=== PATIENT | female | born 1990 | race Caucasian/White ===

== ENCOUNTER 2016-11-29 04:28 | Emergency (ER) | payer OTHER ==
[2016-11-29 04:39] VITALS: BP 141/53; PULSE 97; RESP 16; TEMP 97.5
--- NOTE | 2016-11-29 04:51 | ED ---
General Adult HPI - General Chief complaint: Fall Stated complaint: fell, head injury Time Seen by Provider: 11/29/16 04:35 Source: patient, family, RN notes reviewed Mode of arrival: ambulatory Limitations: no limitations - History of Present Illness Initial comments: This is a 26-year-old female comes in today complaining of having fallen and hit her head. Patient states she has mild headache at this time. Patient states she's been drinking and tripped over a cement. Patient did not lose consciousness she was not dazed. Patient denies any numbness weakness. Patient does complain of a little bit of neck tenderness on the lateral aspects of the spinous process. Patient denies any other injury. Patient denies any nausea or vomiting. Patient states she was not dizzy or lightheaded prior to the event or after the event. - Related Data Home Medications Medication Instructions Recorded Confirmed FLUoxetine HCL [PROzac] 20 mg PO DAILY 09/06/14 06/16/15 Levothyroxine Sodium [Synthroid] 1 tab OP DAILY 12/08/14 06/16/15 Opy-Loud-Jvays Acid 1 tab PO DAILY 12/11/14 06/16/15 [-U Capsule] Previous Rx's Medication Instructions Recorded Ibuprofen [Motrin] 800 mg PO Q8HR PRN #30 tab 06/16/15 Ondansetron Odt [Zofran ODT] 4 mg PO Q8HR PRN #10 tab 06/16/15 Allergies Allergy/AdvReac Type Severity Reaction Status Date / Time Penicillins Allergy Swelling Verified 01/29/15 17:04 Review of Systems ROS Statement: Those systems with pertinent positive or pertinent negative responses have been documented in the HPI. ROS Other: All systems not noted in ROS Statement are negative. Past Medical History Past Medical History: Thyroid Disorder History of Any Multi-Drug Resistant Organisms: None Reported Past Surgical History: Section Past Psychological History: Anxiety, Depression Smoking Status: Former smoker Past Alcohol Use History: None Reported Past Drug Use History: None Reported General Exam - General Exam Comments Initial Comments: GENERAL Patient is well-developed and well-nourished. Patient is in mild distress. There is a hematoma on the right aspect of the forehead with a superficial abrasion over the hematoma EYES Patient's pupils are equal and round. Extraocular motion is intact. SKIN Unremarkable NEURO The patient is alert and oriented 3 PYSCH Patient has normal interpersonal interactions. MUSCULOSKELETAL Patient has full range of motion of all 4 extremities Limitations: no limitations Course Vital Signs 11/29/16 04:36 Temperature 97.5 F L Pulse Rate 97 Respiratory 16 Rate Blood Pressure 141/53 O2 Sat by Pulse 97 Oximetry Medical Decision Making - Medical Decision Making CT of the brain and C-spine are negative for any acute injury except for hematoma on the forehead Disposition Clinical Impression: Traumatic hematoma of forehead, Head injury Disposition: HOME SELF-CARE Instructions: Head Injury (ED), Hematoma (ED) Referrals: Gorge Courtney DO [Primary Care Provider] - 1-2 days Time of Disposition: 05:26
--- NOTE | 2016-11-29 05:21 | CT ---
EXAMINATION TYPE: CT brain [place] wo con DATE OF EXAM: 11/29/2016 5:06 AM COMPARISON: CT brain 03/21/2010 HISTORY: Pt. fell and hit her head; abrasion/contusion to right frontal bone. CT DLP: 1370.80 mGycm Automated exposure control for dose reduction was used. TECHNIQUE: CT scan of the head and cervical spine are performed without contrast. FINDINGS: CT BRAIN: There is evidence of 1.3 x 5.0 cm cephalohematoma in the right frontal area in the axial image 11. No definite depressed skull fracture is noted. No significant brain contusion changes are noted in the bilateral frontal lobes and also bilateral occipital and the posterior parietal lobes of brain. No si gnificant subdural or epidural hematoma is noted at this time. There is no acute intracranial hemorrhage, mass effect, or midline shift identified. The ventricles and sulci are within normal limits in size. The globes are intact and the visualized sinuses are cl ear. CT CERVICAL SPINE: Cervical spine is visualized in its entirety from C1 through upper thoracic levels and demonstrates s atisfactory alignment without evidence of acute fracture or dislocation. Prevertebral soft tissue ap pears within normal limits. The C1-C2 articulation is unremarkable. Upper lung okeefe appear grossly unremarkable bilaterally. IMPRESSION: 1. There is no acute fracture or dislocation evident in the cervical spine. 2. No acute intracranial hemorrhage, mass effect, or midline shift is seen. 3. There is evidence of 1.3 x 5.0 cm cephalohematoma in the right frontal area without depressed skul l fracture.
== END 2016-11-29 05:43 | disposition home or self-care (01) ==
LOC: EC 04:28
DX: S00.83XA Contusion of other part of head, initial encounter (principal); E07.9 Disorder of thyroid, unspecified; F32.9 Major depressive disorder, single episode, unspecified; Z79.899 Other long term (current) drug therapy; Z88.0 Allergy status to penicillin; Z87.891 Personal history of nicotine dependence; W19.XXXA Unspecified fall, initial encounter
CPT/HCPCS: 70450; 72125; 99284

== ENCOUNTER → 2017-01-13 | Outpatient (CLI) | payer OTHER ==
[2017-01-13 17:00] LABS: CH 29.7; CHCM 33.8; HCT 42.2 % (34.0-46.0); HDW 2.49; HGB 14.9 gm/dL (11.4-16.0); MCH 31.1 pg (25.0-35.0); MCHC 35.2 g/dL (31.0-37.0); MCV 88.3 fL (80.0-100.0); Mean Platelet Volume 7.3; RBC 4.78 m/uL (3.80-5.40); RDW 12.3 % (11.5-15.5); WBC 9.6 k/uL (3.8-10.6)
[2017-01-13 17:11] LABS: ALT 35 U/L (9-52); AST 28 U/L (14-36); Alkaline Phosphatase 74 U/L (38-126); Anion Gap 12 mmol/L; Blood Urea Nitrogen 11 mg/dL (7-17); Calcium 9.7 mg/dL (8.4-10.2); Carbon Dioxide 24 mmol/L (22-30); Chloride 105 mmol/L (98-107); Cholesterol 192 mg/dL (<200); Glucose 93 mg/dL (74-99); HDL Cholesterol 62 mg/dL (40-60); Non-African American GFR(MDRD) >60 (>60 ml/min/1.73 sqM); Potassium 4.2 mmol/L (3.5-5.1); Sodium 141 mmol/L (137-145); Total Bilirubin 0.4 mg/dL (0.2-1.3); Triglycerides 134 mg/dL (<150)
== END | disposition home or self-care (01) ==
LOC: LABWHC1 16:00
PROVIDERS: ATTEND Psychiatry & Neurology Psychiatry
DX: E03.9 Hypothyroidism, unspecified (principal); B36.0 Pityriasis versicolor
CPT/HCPCS: 36415; 80053; 80061; 84439; 84443; 85027

== ENCOUNTER → 2017-06-23 | Outpatient (CLI) | payer OTHER ==
[2017-06-23 10:29] LABS: CH 29.9; CHCM 33.7; HCT 42.7 % (34.0-46.0); HDW 2.38; HGB 14.3 gm/dL (11.4-16.0); MCH 29.9 pg (25.0-35.0); MCHC 33.5 g/dL (31.0-37.0); MCV 89.1 fL (80.0-100.0); RBC 4.79 m/uL (3.80-5.40); RDW 13.4 % (11.5-15.5); WBC 6.7 k/uL (3.8-10.6)
[2017-06-23 10:47] LABS: ALT 36 U/L (9-52); AST 23 U/L (14-36); Alkaline Phosphatase 54 U/L (38-126); Anion Gap 9 mmol/L; Blood Urea Nitrogen 13 mg/dL (7-17); Calcium 9.3 mg/dL (8.4-10.2); Carbon Dioxide 27 mmol/L (22-30); Chloride 104 mmol/L (98-107); Cholesterol 190 mg/dL (<200); Glucose 90 mg/dL (74-99); HDL Cholesterol 59 mg/dL (40-60); Non-African American GFR(MDRD) >60 (>60 ml/min/1.73 sqM); Potassium 4.3 mmol/L (3.5-5.1); Sodium 140 mmol/L (137-145); Total Bilirubin 0.8 mg/dL (0.2-1.3); Total Protein 7.1 g/dL (6.3-8.2); Triglycerides 102 mg/dL (<150)
[2017-06-23 19:08] LABS: Hemoglobin A1C 5.1 % (4.2-6.1)
== END | disposition home or self-care (01) ==
LOC: LABWHC1 09:38
PROVIDERS: ATTEND Psychiatry & Neurology Psychiatry
DX: F31.60 Bipolar disorder, current episode mixed, unspecified (principal); Z79.899 Other long term (current) drug therapy
CPT/HCPCS: 36415; 80053; 80061; 83036; 84439; 84443; 85027

== ENCOUNTER 2017-09-01 10:28 | Emergency (ER) | payer OTHER ==
--- NOTE | 2017-09-01 11:36 | ED ---
Psych HPI - General Chief Complaint: Psychiatric Symptoms Stated Complaint: mental health Time Seen by Provider: 09/01/17 10:46 Source: patient Mode of arrival: ambulatory - History of Present Illness Initial Comments: 's is a 27-year-old female to history of depression and anxiety who typically takes Prozac and Abilify who presents emergency department for depression and suicidal ideation. She states that she's been out of her medications for the last month and a half due to insurance reasons. She states that she called her psychiatrist and has an appointment next week however has been having worsening depression and thoughts of wanting to hurt herself. She does not have a specific plan. She denies any homicidal ideation. No attempt at injury. She denies any other acute complaints currently. - Related Data Home Medications Medication Instructions Recorded Confirmed ALPRAZolam [Xanax] 0.25 mg PO DAILY PRN 09/01/17 09/01/17 Allergies Allergy/AdvReac Type Severity Reaction Status Date / Time Penicillins Allergy Swelling Verified 09/01/17 11:01 Review of Systems ROS Statement: Those systems with pertinent positive or pertinent negative responses have been documented in the HPI. ROS Other: All systems not noted in ROS Statement are negative. Past Medical History Past Medical History: Thyroid Disorder History of Any Multi-Drug Resistant Organisms: None Reported Past Surgical History: Section Past Psychological History: Anxiety, Depression Smoking Status: Former smoker Past Alcohol Use History: Occasional General Exam - General Exam Comments Initial Comments: Constitutional: Awake alert Appears comfortable Head: Normocephalic atraumatic Eyes: no conjunctival injection No scleral icterus EOMI Neck: No JVD Supple Heart: Regular rate rhythm normal S1-S2 no murmurs Lungs: Clear to auscultation bilaterally No wheezing No rales Abdomen: Soft nondistended nontender Extremities: Non edematous DP pulses intact Radial pulses intact Neuro: A&Ox3 No focal neurologic deficits Psych: Breast and suicidal without specific plan Limitations: no limitations Course Vital Signs 09/01/17 10:42 Temperature 99.5 F Pulse Rate 85 Respiratory 18 Rate Blood Pressure 134/63 O2 Sat by Pulse 93 L Oximetry Medical Decision Making - Medical Decision Making Is a 27-year-old female who presents emergency department for suicidal ideation. She was evaluated by EPS and to be any mental health who have established an outpatient follow-up for her. The patient is going to follow-up with her psychiatrist next week. They're going to have someone check on her daily. The patient is comfortable with this plan. The do not recommend refilling her prescriptions at this time. - Lab Data Lab Results 09/01/17 09/01/17 Range/Units 11:00 11:00 Urine HCG, Qual Not Detected (Not Detectd) Urine Opiates Screen Not Detected (NotDetected) Ur Oxycodone Screen Not Detected (NotDetected) Urine Methadone Screen Not Detected (NotDetected) Ur Propoxyphene Screen Not Detected (NotDetected) Ur Barbiturates Screen Not Detected (NotDetected) U Tricyclic Antidepress Not Detected (NotDetected) Ur Phencyclidine Scrn Not Detected (NotDetected) Ur Amphetamines Screen Not Detected (NotDetected) U Methamphetamines Scrn Not Detected (NotDetected) U Benzodiazepines Scrn Not Detected (NotDetected) Urine Cocaine Screen Not Detected (NotDetected) U Marijuana (THC) Screen Not Detected (NotDetected) Disposition Clinical Impression: Depression Disposition: HOME SELF-CARE Condition: Fair Instructions: Depression (ED) Referrals: Gorge Courtney DO [Primary Care Provider] - 1-2 days
[2017-09-01 14:07] VITALS: BP 121/67; PULSE 92; RESP 97; TEMP 98.5
== END 2017-09-01 14:24 | disposition home or self-care (01) ==
LOC: EC 10:28
DX: F32.9 Major depressive disorder, single episode, unspecified (principal); R45.851 Suicidal ideations; Z87.891 Personal history of nicotine dependence; Z88.0 Allergy status to penicillin
CPT/HCPCS: 80306; 81025; 82075; 99284

== ENCOUNTER 2017-11-21 15:27 | Emergency (ER) | payer OTHER ==
[2017-11-21 15:39] VITALS: TEMP 98
[2017-11-21] MEDS ORDERED: ONDANSETRON 4 MG/2 ML VIAL IVP STA (16:16)
[2017-11-21] MEDS ORDERED: SODIUM CHLORIDE 0.9% 1,000 ML IV STA (16:16)
[2017-11-21] MEDS ORDERED: FAMOTIDINE 20 MG/2 ML VIAL IV STA (16:16)
--- NOTE | 2017-11-21 16:22 | ED ---
General Adult HPI - General Chief complaint: Abdominal Pain Stated complaint: Abd pain Time Seen by Provider: 11/21/17 16:10 Source: patient, RN notes reviewed Mode of arrival: ambulatory Limitations: no limitations - History of Present Illness Initial comments: 27-year-old female presents to the emergency department with a chief complaint of nausea and vomiting. Patient states started up to 3 hours ago. She states that originally looked like vomit with just trace of blood and that is what is continuing to look like but she was concerned due to the blood. She states she' s had some epigastric abdominal pain. There's been no diarrhea no fever or chills. She states that there is been no cough cold. She states that she deja little bit of streaking in it appeared to be like blood so she thought that she should be seen. Patient states she has not vomited over the last half hour. Patient denies any new or different foods. Patient states she is not currently having any other symptoms. Patient denies any recent fever, chills, shortness of breath, chest pain, back pain, numbness or tingling, dysuria or hematuria, constipation or diarrhea, headaches or visual changes, or any other current symptoms. - Related Data Home Medications Medication Instructions Recorded Confirmed ARIPiprazole [Abilify] 10 mg PO DAILY 11/21/17 11/21/17 FLUoxetine HCL [PROzac] 20 mg PO DAILY 11/21/17 11/21/17 Previous Rx's Medication Instructions Recorded Famotidine [Pepcid] 20 mg PO BID #10 tablet 11/21/17 Ondansetron Odt [Zofran ODT] 4 mg PO Q8HR PRN #20 tab 11/21/17 Allergies Allergy/AdvReac Type Severity Reaction Status Date / Time Penicillins Allergy Swelling Verified 11/21/17 16:17 Review of Systems ROS Statement: Those systems with pertinent positive or pertinent negative responses have been documented in the HPI. ROS Other: All systems not noted in ROS Statement are negative. Past Medical History Past Medical History: Thyroid Disorder History of Any Multi-Drug Resistant Organisms: None Reported Past Surgical History: Section Past Psychological History: Anxiety, Depression Smoking Status: Former smoker Past Alcohol Use History: Occasional Past Drug Use History: None Reported General Exam - General Exam Comments Initial Comments: General: The patient is awake and alert, in no distress, and does not appear acutely ill. Eye: Pupils are equal, round and reactive to light, extra-ocular movements are intact; there is normal conjunctiva bilaterally. No signs of icterus. Ears, nose, mouth and throat: There are moist mucous membranes. Neck: The neck is supple, there is no tenderness. Cardiovascular: There is a regular rate and rhythm. No murmur, rub or gallop is appreciated. Respiratory: Lungs are clear to auscultation, respirations are non-labored, breath sounds are equal. No wheezes, stridor, rales, or rhonchi. Gastrointestinal: Soft, non-distended, non-tender abdomen without masses or organomegaly noted. There is no rebound or guarding present. No CVA tenderness. Bowel sounds are unremarkable. Back: There is no tenderness to palpation in the midline. There is no obvious deformity. No rashes noted. Musculoskeletal: Normal ROM, no tenderness, There is no pedal edema. There is no calf tenderness or swelling. Sensation intact. Pulses equal bilaterally 2+. Neurological: CN II-XII intact, There are no obvious motor or sensory deficits. Coordination appears grossly intact. Speech is normal. Skin: Skin is warm and dry and no rashes or lesions are noted. Psychiatric: Cooperative, appropriate mood & affect, normal judgment. Limitations: no limitations Course Vital Signs 11/21/17 11/21/17 15:36 16:51 Temperature 98 F Pulse Rate 97 99 Respiratory 18 18 Rate Blood Pressure 122/73 130/63 O2 Sat by Pulse 100 99 Oximetry Medical Decision Making - Medical Decision Making 27-year-old female presents for nausea vomiting and epigastric abdominal pain. This time she is feeling better on exam. At this time we did discuss the patient's lab results and imaging results. We did discuss follow-up with GI. We did discuss return parameters discussed patient's questions. We did discuss all discussed follow-up. - Lab Data Result diagrams: 11/21/17 16:46 11/21/17 16:46 Lab Results 11/21/17 11/21/17 11/21/17 Range/Units 16:46 16:46 16:46 WBC 10.2 (3.8-10.6) k/uL RBC 4.74 (3.80-5.40) m/uL Hgb 13.6 (11.4-16.0) gm/dL Hct 41.4 (34.0-46.0) % MCV 87.4 (80.0-100.0) fL MCH 28.8 (25.0-35.0) pg MCHC 32.9 (31.0-37.0) g/dL RDW 14.1 (11.5-15.5) % Plt Count 236 (150-450) k/uL Neutrophils % 82 % Lymphocytes % 12 % Monocytes % 4 % Eosinophils % 1 % Basophils % 1 % Neutrophils # 8.4 H (1.3-7.7) k/uL Lymphocytes # 1.2 (1.0-4.8) k/uL Monocytes # 0.4 (0-1.0) k/uL Eosinophils # 0.1 (0-0.7) k/uL Basophils # 0.1 (0-0.2) k/uL PT (9.0-12.0) sec INR (<1.2) APTT (22.0-30.0) sec Sodium 143 (137-145) mmol/L Potassium 4.3 (3.5-5.1) mmol/L Chloride 105 (98-107) mmol/L Carbon Dioxide 26 (22-30) mmol/L Anion Gap 12 mmol/L BUN 12 (7-17) mg/dL Creatinine 0.60 (0.52-1.04) mg/dL Est GFR (MDRD) Af Amer >60 (>60 ml/min/1.73 sqM) Est GFR (MDRD) Non-Af >60 (>60 ml/min/1.73 sqM) Glucose 93 (74-99) mg/dL Plasma Lactic Acid Ambrosio (0.7-2.0) mmol/L Calcium 9.6 (8.4-10.2) mg/dL Total Bilirubin 0.5 (0.2-1.3) mg/dL AST 27 (14-36) U/L ALT 38 (9-52) U/L Alkaline Phosphatase 54 (38-126) U/L Total Protein 7.8 (6.3-8.2) g/dL Albumin 4.9 (3.5-5.0) g/dL Amylase 59 (30-110) U/L Lipase 49 (23-300) U/L Urine Color Urine Appearance (Clear) Urine pH (5.0-8.0) Ur Specific English (1.001-1.035) Urine Protein (Negative) Urine Glucose (UA) (Negative) Urine Ketones (Negative) Urine Blood (Negative) Urine Nitrite (Negative) Urine Bilirubin (Negative) Urine Urobilinogen (<2.0) mg/dL Ur Leukocyte Esterase (Negative) Urine RBC (0-5) /hpf Urine WBC (0-5) /hpf Ur Squamous Epith Cells (0-4) /hpf Amorphous Sediment (None) /hpf Urine Mucus (None) /hpf Urine HCG, Qual (Not Detectd) Blood Type O Positive Blood Type Recheck No Antibody Screen NEGATIVE Spec Expiration Date 11/24/2017 - 234511/21/17 11/21/17 11/21/17 Range/Units 16:46 16:46 16:46 WBC (3.8-10.6) k/uL RBC (3.80-5.40) m/uL Hgb (11.4-16.0) gm/dL Hct (34.0-46.0) % MCV (80.0-100.0) fL MCH (25.0-35.0) pg MCHC (31.0-37.0) g/dL RDW (11.5-15.5) % Plt Count (150-450) k/uL Neutrophils % % Lymphocytes % % Monocytes % % Eosinophils % % Basophils % % Neutrophils # (1.3-7.7) k/uL Lymphocytes # (1.0-4.8) k/uL Monocytes # (0-1.0) k/uL Eosinophils # (0-0.7) k/uL Basophils # (0-0.2) k/uL PT 10.2 (9.0-12.0) sec INR 1.0 (<1.2) APTT 24.9 (22.0-30.0) sec Sodium (137-145) mmol/L Potassium (3.5-5.1) mmol/L Chloride (98-107) mmol/L Carbon Dioxide (22-30) mmol/L Anion Gap mmol/L BUN (7-17) mg/dL Creatinine (0.52-1.04) mg/dL Est GFR (MDRD) Af Amer (>60 ml/min/1.73 sqM) Est GFR (MDRD) Non-Af (>60 ml/min/1.73 sqM) Glucose (74-99) mg/dL Plasma Lactic Acid Ambrosio 1.7 (0.7-2.0) mmol/L Calcium (8.4-10.2) mg/dL Total Bilirubin (0.2-1.3) mg/dL AST (14-36) U/L ALT (9-52) U/L Alkaline Phosphatase (38-126) U/L Total Protein (6.3-8.2) g/dL Albumin (3.5-5.0) g/dL Amylase (30-110) U/L Lipase (23-300) U/L Urine Color Yellow Urine Appearance Cloudy H (Clear) Urine pH 8.5 H (5.0-8.0) Ur Specific English 1.024 (1.001-1.035) Urine Protein 2+ H (Negative) Urine Glucose (UA) Negative (Negative) Urine Ketones Negative (Negative) Urine Blood Negative (Negative) Urine Nitrite Negative (Negative) Urine Bilirubin Negative (Negative) Urine Urobilinogen <2.0 (<2.0) mg/dL Ur Leukocyte Esterase Moderate H (Negative) Urine RBC 8 H (0-5) /hpf Urine WBC 7 H (0-5) /hpf Ur Squamous Epith Cells 17 H (0-4) /hpf Amorphous Sediment Rare H (None) /hpf Urine Mucus Few H (None) /hpf Urine HCG, Qual (Not Detectd) Blood Type Blood Type Recheck Antibody Screen Spec Expiration Date 11/21/17 Range/Units 16:46 WBC (3.8-10.6) k/uL RBC (3.80-5.40) m/uL Hgb (11.4-16.0) gm/dL Hct (34.0-46.0) % MCV (80.0-100.0) fL MCH (25.0-35.0) pg MCHC (31.0-37.0) g/dL RDW (11.5-15.5) % Plt Count (150-450) k/uL Neutrophils % % Lymphocytes % % Monocytes % % Eosinophils % % Basophils % % Neutrophils # (1.3-7.7) k/uL Lymphocytes # (1.0-4.8) k/uL Monocytes # (0-1.0) k/uL Eosinophils # (0-0.7) k/uL Basophils # (0-0.2) k/uL PT (9.0-12.0) sec INR (<1.2) APTT (22.0-30.0) sec Sodium (137-145) mmol/L Potassium (3.5-5.1) mmol/L Chloride (98-107) mmol/L Carbon Dioxide (22-30) mmol/L Anion Gap mmol/L BUN (7-17) mg/dL Creatinine (0.52-1.04) mg/dL Est GFR (MDRD) Af Amer (>60 ml/min/1.73 sqM) Est GFR (MDRD) Non-Af (>60 ml/min/1.73 sqM) Glucose (74-99) mg/dL Plasma Lactic Acid Ambrosio (0.7-2.0) mmol/L Calcium (8.4-10.2) mg/dL Total Bilirubin (0.2-1.3) mg/dL AST (14-36) U/L ALT (9-52) U/L Alkaline Phosphatase (38-126) U/L Total Protein (6.3-8.2) g/dL Albumin (3.5-5.0) g/dL Amylase (30-110) U/L Lipase (23-300) U/L Urine Color Urine Appearance (Clear) Urine pH (5.0-8.0) Ur Specific English (1.001-1.035) Urine Protein (Negative) Urine Glucose (UA) (Negative) Urine Ketones (Negative) Urine Blood (Negative) Urine Nitrite (Negative) Urine Bilirubin (Negative) Urine Urobilinogen (<2.0) mg/dL Ur Leukocyte Esterase (Negative) Urine RBC (0-5) /hpf Urine WBC (0-5) /hpf Ur Squamous Epith Cells (0-4) /hpf Amorphous Sediment (None) /hpf Urine Mucus (None) /hpf Urine HCG, Qual Not Detected (Not Detectd) Blood Type Blood Type Recheck Antibody Screen Spec Expiration Date - Radiology Data Radiology results: report reviewed, image reviewed Disposition Clinical Impression: Nausea & vomiting Disposition: HOME SELF-CARE Condition: Stable Instructions: Acute Nausea and Vomiting (ED) Additional Instructions: Please use medication as discussed. Please follow up with family doctor if symptoms have not improved over the next two days. Please return to the emergency room if your symptoms increase or worsen or for any other concerns. Prescriptions: Famotidine [Pepcid] 20 mg PO BID #10 tablet Ondansetron Odt [Zofran ODT] 4 mg PO Q8HR PRN #20 tab PRN Reason: Nausea Referrals: Gorge Courtney DO [Primary Care Provider] - 1-2 days Giovanni Keith MD [STAFF PHYSICIAN] - 1-2 days Time of Disposition: 18:35
[2017-11-21 17:04] LABS: Basophils # (A) 0.1 k/uL (0-0.2); Basophils % (A) 1 %; Eosinophils # (A) 0.1 k/uL (0-0.7); Eosinophils % (A) 1 %; HCT 41.4 % (34.0-46.0); HGB 13.6 gm/dL (11.4-16.0); Lymphocytes # (A) 1.2 k/uL (1.0-4.8); Lymphocytes % (A) 12 %; MCH 28.8 pg (25.0-35.0); MCHC 32.9 g/dL (31.0-37.0); MCV 87.4 fL (80.0-100.0); Mean Platelet Volume 7.7; Monocytes # (A) 0.4 k/uL (0-1.0); Monocytes % (A) 4 %; Neutrophils # (A) 8.4 k/uL (1.3-7.7); Neutrophils % (A) 82 %; Platelet Count 236 k/uL (150-450); RBC 4.74 m/uL (3.80-5.40); RDW 14.1 % (11.5-15.5); WBC 10.2 k/uL (3.8-10.6)
[2017-11-21 17:10] LABS: Amorphous Sediment,Urine Rare /hpf; Appearance,Urine Cloudy (Clear); Bilirubin,Urine Negative (Negative); Blood,Urine Negative (Negative); Color,Urine Yellow; Glucose,Urine (UA) Negative (Negative); Ketones,Urine Negative (Negative); Leukocyte Esterase,Urine Moderate (Negative); Mucus,Urine Few /hpf; Nitrite,Urine Negative (Negative); PH, Urine 8.5 (5.0-8.0); Protein,Urine 2+ (Negative); RBC,Urine 8 /hpf (0-5); Specific Gravity,Urine 1.024 (1.001-1.035); Squamous Epithelial Cell,Urine 17 /hpf (0-4); Urobilinogen,Urine <2.0 mg/dL (<2.0); WBC,Urine 7 /hpf (0-5)
[2017-11-21 17:18] LABS: ALT 38 U/L (9-52); AST 27 U/L (14-36); Albumin 4.9 g/dL (3.5-5.0); Alkaline Phosphatase 54 U/L (38-126); Amylase 59 U/L (30-110); Anion Gap 12 mmol/L; Blood Urea Nitrogen 12 mg/dL (7-17); Calcium 9.6 mg/dL (8.4-10.2); Carbon Dioxide 26 mmol/L (22-30); Chloride 105 mmol/L (98-107); Glucose 93 mg/dL (74-99); Lipase 49 U/L (23-300); Potassium 4.3 mmol/L (3.5-5.1); Sodium 143 mmol/L (137-145); Total Bilirubin 0.5 mg/dL (0.2-1.3); Total Protein 7.8 g/dL (6.3-8.2)
[2017-11-21 17:25] LABS: Partial Thromboplastin Time 24.9 sec (22.0-30.0); Prothrombin Time 10.2 sec (9.0-12.0)
--- NOTE | 2017-11-21 18:26 | XR ---
EXAMINATION TYPE: XR abdomen 2V DATE OF EXAM: 11/21/2017 COMPARISON: 06/16/2015 HISTORY: Vomiting TECHNIQUE: 3 views FINDINGS: There is no sign of intestinal obstruction or pneumoperitoneum. Fecal pattern is normal. Hope ng bases are clear. There are no pathologic calcifications over the kidneys. There is no sign of a ma ss. IMPRESSION: Nonacute abdomen. No change.
[2017-11-21 18:48] VITALS: BP 104/58; PULSE 75; RESP 16
== END 2017-11-21 18:45 | disposition home or self-care (01) ==
LOC: EC 15:27
DX: R11.2 Nausea with vomiting, unspecified (principal); R10.13 Epigastric pain; F32.9 Major depressive disorder, single episode, unspecified; F41.9 Anxiety disorder, unspecified; Z87.891 Personal history of nicotine dependence; Z79.899 Other long term (current) drug therapy; Z88.0 Allergy status to penicillin
CPT/HCPCS: 36415; 86900; 86901; 80053; 82150; 83605; 83690; 85025; 85610; 85730; 86850; 81001; 81025; 74020; 99284; 96374; 96375; 96361 ×2; J2405

== ENCOUNTER 2018-01-27 16:26 | Inpatient (IN) | payer MEDICAID, OTHER ==
--- NOTE | 2018-01-27 16:46 | ED ---
General Adult HPI - General Chief complaint: Psychiatric Symptoms Stated complaint: MENTAL HEALTH Time Seen by Provider: 01/27/18 16:33 Source: patient, RN notes reviewed Mode of arrival: ambulatory Limitations: no limitations - History of Present Illness Initial comments: 28-year-old female presents to the emergency department with a chief complaint of depression and history of suicidal thoughts. Patient states that she has been feeling this way for the past few days. She went to her doctor and they referred her here. She does not currently have suicidal thoughts but she did have thoughts earlier without is significant plan. She does admit to these in the past. She denies any attempted suicides. She denies any health concerns. Patient denies any recent fever, chills, shortness of breath, chest pain, back pain, abdominal pain, nausea vomiting, numbness or tingling, dysuria or hematuria, constipation or diarrhea, headaches or visual changes, or any other current symptoms. - Related Data Home Medications Medication Instructions Recorded Confirmed ARIPiprazole [Abilify] 10 mg PO DAILY 11/21/17 01/27/18 FLUoxetine HCL [PROzac] 40 mg PO HS 11/21/17 01/27/18 Allergies Allergy/AdvReac Type Severity Reaction Status Date / Time Penicillins Allergy Swelling Verified 01/27/18 17:33 Review of Systems ROS Statement: Those systems with pertinent positive or pertinent negative responses have been documented in the HPI. ROS Other: All systems not noted in ROS Statement are negative. Past Medical History Past Medical History: Thyroid Disorder History of Any Multi-Drug Resistant Organisms: None Reported Past Surgical History: Section Past Psychological History: Anxiety, Depression Smoking Status: Former smoker Past Alcohol Use History: Occasional Past Drug Use History: None Reported General Exam Limitations: no limitations General appearance: alert, in no apparent distress Neck exam: Present: normal inspection. Absent: tenderness, meningismus, lymphadenopathy Respiratory exam: Present: normal lung sounds bilaterally. Absent: respiratory distress, wheezes, rales, rhonchi, stridor Cardiovascular Exam: Present: regular rate, normal rhythm, normal heart sounds. Absent: systolic murmur, diastolic murmur, rubs, gallop, clicks Neurological exam: Present: alert, oriented X3 Psychiatric exam: Present: depressed, suicidal ideation (in the past not currently). Absent: homicidal ideation Skin exam: Present: warm, dry, intact, normal color. Absent: rash Course Vital Signs 01/27/18 16:40 Temperature 97.6 F Pulse Rate 84 Respiratory 18 Rate Blood Pressure 136/70 O2 Sat by Pulse 97 Oximetry Medical Decision Making - Medical Decision Making 28-year-old female presents to the emergency department with a chief complaint of suicidal thoughts. At this time patient does not appear to be suffering from any acute medical emergencies. At this time the patient is cleared to be evaluated by psychiatry. At this time patient will be admitted to the psychiatric unit. This discussed with the patient who is in agreement the plan. - Lab Data Lab Results 01/27/18 Range/Units 17:05 Urine Opiates Screen Not Detected (NotDetected) Ur Oxycodone Screen Not Detected (NotDetected) Urine Methadone Screen Not Detected (NotDetected) Ur Propoxyphene Screen Not Detected (NotDetected) Ur Barbiturates Screen Not Detected (NotDetected) U Tricyclic Antidepress Not Detected (NotDetected) Ur Phencyclidine Scrn Not Detected (NotDetected) Ur Amphetamines Screen Not Detected (NotDetected) U Methamphetamines Scrn Not Detected (NotDetected) U Benzodiazepines Scrn Detected H (NotDetected) Urine Cocaine Screen Not Detected (NotDetected) U Marijuana (THC) Screen Not Detected (NotDetected) Disposition Clinical Impression: Depression Disposition: TRANSFER TO PSYCH HOSP/UNIT Condition: Stable
[2018-01-27 17:19] LABS: Amphetamine Screen,Urine Not Detected (NotDetected); Barbiturate Screen,Urine Not Detected (NotDetected); Benzodiazepines Screen,Urine Detected (NotDetected); Cocaine Screen,Urine Not Detected (NotDetected); Methadone Screen, Urine Not Detected (NotDetected); Opiate Screen,Urine Not Detected (NotDetected); Oxycodone Screen, Urine Not Detected (NotDetected); Phencyclidine Screen,Urine Not Detected (NotDetected); Tricyclic Antidepressant,Urine Not Detected (NotDetected); Urn Cannabinoid Scrn Not Detected (NotDetected)
[2018-01-27] MEDS ORDERED: LORazepam 1 MG TAB PO PRN (18:04)
[2018-01-27] MEDS ORDERED: ZIPRASIDONE 20 MG VIAL IM PRN (18:04)
[2018-01-27] MEDS ORDERED: ACETAMINOPHEN TAB 325 MG TAB PO PRN (18:04)
[2018-01-27] MEDS ORDERED: MAG HYDROX/AL HYDROX/SIMETH 30 ML CUP PO PRN (18:04)
[2018-01-27] MEDS ORDERED: MAGNESIUM HYDROXIDE 2,400 MG/10 ML CUP PO PRN (18:04)
[2018-01-27] MEDS ORDERED: LORazepam 2 MG/ML INJ IM PRN (18:06)
[2018-01-27 18:23] LABS: Appearance,Urine Cloudy (Clear); Bacteria,Urine Rare /hpf; Bilirubin,Urine Negative (Negative); Blood,Urine Negative (Negative); Color,Urine Yellow; Glucose,Urine (UA) Negative (Negative); Ketones,Urine Negative (Negative); Leukocyte Esterase,Urine Small (Negative); Mucus,Urine Few /hpf; Nitrite,Urine Negative (Negative); PH, Urine 7.5 (5.0-8.0); Protein,Urine Trace (Negative); RBC,Urine 9 /hpf (0-5); Specific Gravity,Urine 1.024 (1.001-1.035); Squamous Epithelial Cell,Urine 14 /hpf (0-4); WBC,Urine 15 /hpf (0-5)
[2018-01-28] MEDS: OXcarbazepine 300 MG TAB PO SCH ×2 (09:16→20:31)
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
[2018-01-28 09:17] LABS: Basophils % (A) 1 %; Eosinophils # (A) 0.1 k/uL (0-0.7); Eosinophils % (A) 1 %; HCT 43.5 % (34.0-46.0); HGB 14.9 gm/dL (11.4-16.0); Lymphocytes # (A) 1.5 k/uL (1.0-4.8); Lymphocytes % (A) 17 %; MCH 28.5 pg (25.0-35.0); MCHC 34.2 g/dL (31.0-37.0); MCV 83.3 fL (80.0-100.0); Mean Platelet Volume 7.2; Monocytes # (A) 0.4 k/uL (0-1.0); Monocytes % (A) 4 %; Neutrophils # (A) 6.8 k/uL (1.3-7.7); Neutrophils % (A) 77 %; Platelet Count 244 k/uL (150-450); RBC 5.23 m/uL (3.80-5.40); RDW 12.1 % (11.5-15.5); WBC 8.8 k/uL (3.8-10.6)
[2018-01-28 09:46] LABS: ALT 33 U/L (9-52); AST 20 U/L (14-36); Albumin 4.6 g/dL (3.5-5.0); Alkaline Phosphatase 49 U/L (38-126); Anion Gap 14 mmol/L; Blood Urea Nitrogen 14 mg/dL (7-17); Calcium 9.9 mg/dL (8.4-10.2); Carbon Dioxide 25 mmol/L (22-30); Chloride 102 mmol/L (98-107); Cholesterol 198 mg/dL (<200); Glucose 136 mg/dL (74-99); HDL Cholesterol 55 mg/dL (40-60); LDL Cholesterol,Calculated 115 mg/dL (0-99); Sodium 141 mmol/L (137-145); Total Bilirubin 0.5 mg/dL (0.2-1.3); Total Protein 7.2 g/dL (6.3-8.2); Triglycerides 138 mg/dL (<150)
--- NOTE | 2018-01-28 17:27 | CONS ---
CONSULTATION DATE OF CONSULTATION: 01/28/2018 REASON FOR CONSULTATION: Medical management requested by Dr. Hayes. CONSULTATION: This is a 28-year-old patient of Dr. Gorge Courtney who presented to the ER. She had a petition stating that she was depressed and suicidal. She had broken up with a girlfriend rather recently. Patient has a long-standing history of depression. Patient also had some manic episodes. She is rather emotional. Anxiety is uncontrolled. Emotions have been labile. REVIEW OF SYSTEMS: CONSTITUTIONAL: None. HEENT: None. RESPIRATORY: None. CARDIOVASCULAR: None. GASTROINTESTINAL: None. GENITOURINARY: None. MUSCULOSKELETAL: None. DERMATOLOGICAL: None. HEMATOLOGICAL: None. LYMPHATICS: None. PSYCHIATRY: As above. NEUROLOGICAL: None. PAST MEDICAL HISTORY: 1. Depression. 2. Anxiety. 3. Hypothyroid. She stopped taking medications, never followed up. PAST SURGICAL HISTORY: . SOCIAL HISTORY: . Lives with her mother. 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 Drinks about 3 times a week beer or liquor. Denies any recreational drug use right now. In the past she did some marijuana, Adderall and Xanax. ALLERGIES: PENICILLIN. HOME MEDICATIONS: 1. Prozac 40 mg at bedtime. 2. Abilify 10 mg p.o. daily. PHYSICAL EXAMINATION: Temperature 98.4, pulse 102, respiration 16, blood pressure 125/76, pulse ox 97% on room air. GENERAL APPEARANCE: Well built. BMI 35.4. Sitting up. Comfortable. EYES: Pupils equal. Conjunctivae normal. HEENT: External appearance of nose and ears normal. Oral cavity normal. NECK: JVD not raised. Mass not palpable. RESPIRATORY: Effort normal. LUNGS: Fair air entry. CARDIOVASCULAR: First and second sounds normal. No edema. ABDOMEN: Soft, nontender. Liver and spleen not palpable. LYMPHATIC: No lymph node palpable in neck or axillae. PSYCHIATRY: Patient is able to answer questions. Mood and affect slightly low. NEUROLOGICAL: Pupils equal. Cranial nerves grossly intact. Power and sensation grossly intact. INVESTIGATIONS: White count 8.8, hemoglobin 14.9, potassium 4.0. BUN and creatinine are normal. UA appears to be contaminated. Urine drug screen positive for benzodiazepines. ASSESSMENT: 1. Patient was seen by Psychiatry. They think patient has unspecified bipolar and unspecified personality disorder with some histrionic features. 2. Obesity with body mass index of 35.4. 3. Contaminated urine sample. PLAN: The patient can be put on an 1800-calorie diet for right now. She should see a dietitian when she is discharged. Psychiatric medications per the attending. Care was discussed with the patient. Thank you, Dr. Hayes. MMLORENZO / PHILIPN: [id number] /
[2018-01-28 20:16] LABS: Hemoglobin A1C 5.1 % (4.0-6.0)
[2018-01-28] MEDS: QUEtiapine 100 MG TAB PO SCH (20:31)
[2018-01-29] MEDS: OXcarbazepine 300 MG TAB PO SCH ×2 (08:43→20:20)
--- NOTE | 2018-01-29 15:07 | P.PN ---
Progress Note - Text Interval history: The patient is found in her room she follows me to an interview room. She reports being overwhelmed with recent stressors the most significant being the breakup from her girlfriend. She reports they were together for approximately 10 months. The patient states that she believe she has a bipolar diagnosis. She has been started on Trileptal and Seroquel for mood stabilization and sleep. She indicates she slept well last night. She had several questions regarding her psychotropic medications which were addressed. She is looking forward to a visit from her mother this evening she finds her supportive. She is hoping to participate in a DBT program as an outpatient. Mental status exam: The patient is an overweight female appearing her stated age. She seated calmly. Hygiene grooming grossly intact she is dressed in her own clothing. She participates in the session appropriately. She is cooperative. She reports that she feels safer here in the hospital. She is reporting no thoughts of harming others. She is endorsing no auditory or visual hallucinations or any specific delusions. She demonstrates no tangential thinking loose associations or flight of ideas. Insight and judgment limited. She is oriented to person place and date. Plan: The patient's will continue on her current psychotropic medications. She is encouraged to participate in the milieu. Vital signs reviewed. We will monitor her for safety.
[2018-01-29] MEDS: QUEtiapine 100 MG TAB PO SCH (20:20)
[2018-01-30] MEDS: OXcarbazepine 300 MG TAB PO SCH ×2 (08:31→20:18)
--- NOTE | 2018-01-30 10:36 | P.PN ---
Progress Note - Text Interval history: The patient is found in the hallway she follows me to an interview room. She states that she is doing well and asks if she can be discharged today. She has been compliant with medication. She is sleeping well and does not feel tired in the morning with the Seroquel. She feels her anxiety is significantly decreased and this gives her confidence. She has a supportive meeting with her mother and 2 aunts last night. She has been attending groups. Appetite stable. Mental status exam: The patient is an alert female appearing her stated age. She is dressed in clothing hygiene grooming are adequate. She reports her mood is much better she is reporting no suicidal or homicidal ideation intent or plan. She is endorsing no auditory or visual hallucinations or any specific delusions. There is no observable evidence of psychosis. She demonstrates no tangential thinking loose associations or flight of ideas. She does not appear hypomanic or manic. She demonstrated no verbal or physical aggressiveness she demonstrates no abnormal involuntary movements. She remains oriented to person place and date. Plan: The patient will continue on her current psychotropic medications. We will continue to monitor for safety and encourage her participation in the milieu. She appears to be clinically stabilizing. Vital signs reviewed.
[2018-01-30 12:12] VITALS: BMI 35.6
[2018-01-30] MEDS: QUEtiapine 100 MG TAB PO SCH (20:18)
[2018-01-31 06:20] VITALS: BP 106/55; PULSE 72; RESP 16; TEMP 98.6
[2018-01-31] MEDS: OXcarbazepine 300 MG TAB PO SCH (08:28)
--- NOTE | 2018-01-31 10:15 | P.DS ---
Providers Date of admission: 01/27/18 17:49 Expected date of discharge: 01/31/18 Attending physician: Amirah Hayes Consults: 01/27/18 18:04 Consult Physician Routine Consulting Provider: Arun Corea Consult Reason/Comments: Follow Up H & P Do you want consulting provider notified?: Yes Primary care physician: [facility] Course: Patient had her psychiatric evaluation physical examination and psychosocial evaluation. After psychiatric evaluation her condition was discussed with her and it was agreed to start her on Seroquel 100 mg at bedtime and Trileptal 300 mg twice a day for mood stabilization. She took these medications without any adverse effect and she was able to sleep very well at night, her mood has been stable, continues to deny suicidal and homicidal ideas. She has been attending her groups, socializing with peers and interacting with staff members. She agreed to comply with outpatient treatment and it was agreed to discharge her. Condition on discharge. This is a ambulatory female with good hygiene. She is polite and cooperative. She does not show any psychomotor agitation or retardation. Her speech is spontaneous relevant and goal- directed. Her mood is euthymic to cheerful and affect is appropriate. She denies hallucinations delusional thinking suicidal and homicidal ideas. She talk to her girlfriend and they have decided to be friends again. She is well oriented with good memory concentration general fund of knowledge etc. Her insight and judgment have improved. 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 Discharge instructions: Patient was advised to take her medications as prescribed, to seek outpatient counseling including DBT, to learn better coping skills through therapy, to inform her doctor if she gets , not to drive or operate machinery if she feels sleepy. She agreed with all these recommendations. Patient Condition at Discharge: Good Plan - Discharge Summary Discharge Rx Participant: No New Discharge Prescriptions: New OXcarbazepine [Trileptal] 300 mg PO BID 30 Days #60 tab QUEtiapine [SEROquel] 100 mg PO HS 30 Days #30 tab Discontinued ARIPiprazole [Abilify] 10 mg PO DAILY FLUoxetine HCL [PROzac] 40 mg PO HS Discharge Medication List OXcarbazepine [Trileptal] 300 mg PO BID 30 Days #60 tab 01/31/18 [Rx] QUEtiapine [SEROquel] 100 mg PO HS 30 Days #30 tab 01/31/18 [Rx] Follow up Appointment(s)/Referral(s): Gorge Courtney DO [Primary Care Provider] - 1-2 days Activity/Diet/Wound Care/Special Instructions: Per Dr. Corea, follow up with digital x ray service engineer upon discharge for appropriate diet and nutritional intake.
== END 2018-01-31 13:01 | disposition home or self-care (01) | DRG 885 ==
LOC: EC 16:26 → 3MHU 17:49
PROVIDERS: ADMIT Psychiatry & Neurology Psychiatry; ATTEND Psychiatry & Neurology Psychiatry
DX: F31.9 Bipolar disorder, unspecified (principal); F13.20 Sedative, hypnotic or anxiolytic dependence, uncomplicated; F10.20 Alcohol dependence, uncomplicated; F60.3 Borderline personality disorder; E03.9 Hypothyroidism, unspecified; F41.9 Anxiety disorder, unspecified; F60.4 Histrionic personality disorder; E66.9 Obesity, unspecified; Z68.35 Body mass index [BMI] 35.0-35.9, adult; Z79.899 Other long term (current) drug therapy; Z87.891 Personal history of nicotine dependence; Z91.5 Personal history of self-harm; Z62.810 Personal history of physical and sexual abuse in childhood; Z88.0 Allergy status to penicillin
CPT/HCPCS: 80053; 80061; 80306; 81001; 81025; 82075; 83036; 84443; 85025; 99285

== ENCOUNTER → 2018-03-15 | Outpatient (CLI) | payer OTHER ==
[2018-03-15 10:39] LABS: HCT 40.2 % (34.0-46.0); HGB 13.3 gm/dL (11.4-16.0); MCH 27.9 pg (25.0-35.0); MCHC 33.1 g/dL (31.0-37.0); MCV 84.3 fL (80.0-100.0); Mean Platelet Volume 7.6; Platelet Count 223 k/uL (150-450); RBC 4.77 m/uL (3.80-5.40); RDW 12.7 % (11.5-15.5); WBC 7.7 k/uL (3.8-10.6)
[2018-03-15 11:09] LABS: ALT 26 U/L (9-52); Cholesterol 209 mg/dL (<200); HDL Cholesterol 53 mg/dL (40-60); LDL Cholesterol,Calculated 124 mg/dL (0-99); Triglycerides 159 mg/dL (<150)
[2018-03-15 18:49] LABS: Hemoglobin A1C 5.3 % (4.0-6.0)
== END | disposition home or self-care (01) ==
LOC: LABWHC1 09:38
PROVIDERS: ATTEND Psychiatry & Neurology Psychiatry
DX: F31.60 Bipolar disorder, current episode mixed, unspecified (principal); Z79.899 Other long term (current) drug therapy
CPT/HCPCS: 36415; 80061; 83036; 84460; 85027

== ENCOUNTER → 2018-09-13 | Outpatient (CLI) | payer OTHER ==
[2018-09-13 16:17] LABS: Anion Gap 8.2 mmol/L (4.00-12.00); Calcium 9.6 mg/dL (8.7-10.3); Carbon Dioxide 24.8 mmol/L (21.6-31.8); Potassium 4.2 mmol/L (3.5-5.5)
[2018-09-13 16:24] LABS: T4, Free (Free Thyroxine) 1.1 ng/dL (0.80-1.80)
[2018-09-13 20:34] LABS: Hemoglobin A1C 5.3 % (4.0-6.0)
== END ==
LOC: LABWHC1 11:16
PROVIDERS: ATTEND Psychiatry & Neurology Psychiatry
DX: R53.83 Other fatigue (principal); Z79.899 Other long term (current) drug therapy
CPT/HCPCS: 36415; 80048; 83036; 84439; 84443

== ENCOUNTER 2020-01-03 18:55 | Emergency (ER) | payer OTHER ==
[2020-01-03] MEDS ORDERED: IPRATROPIUM-ALBUTEROL 3 ML NEB INHALATION STA (19:49)
[2020-01-03] MEDS ORDERED: SODIUM CHLORIDE 0.9% 1,000 ML IV STA (19:49)
--- NOTE | 2020-01-03 19:55 | ED ---
General Adult HPI - General Chief complaint: Fever Stated complaint: +Flu B, SOB, cough Time Seen by Provider: 01/03/20 19:35 Source: patient, RN notes reviewed Mode of arrival: ambulatory Limitations: no limitations - History of Present Illness Initial comments: This is a 29-year-old female who had the onset 3 days ago of fevers chills sweats cough rhinorrhea and was diagnosed yesterday with influenza type B who presents back here tonight with complaints of persistent fevers going between 101-103F cough shortness of breath she states she's been coughing so hard she isn't throwing up. She has body aches and generally does not feel well she continues to have fever chills and sweats. She has have a history of asthma she states she hasn't noticed wheezing. She is demonstrating exertional dyspnea. - Related Data Previous Rx's Medication Instructions Recorded OXcarbazepine [Trileptal] 300 mg PO BID 30 Days #60 tab 01/31/18 QUEtiapine [SEROquel] 100 mg PO HS 30 Days #30 tab 01/31/18 Ibuprofen 800 mg PO Q6HR PRN #20 tablet 01/03/20 Allergies Allergy/AdvReac Type Severity Reaction Status Date / Time Penicillins Allergy Swelling Verified 01/30/18 12:13 Review of Systems ROS Statement: Those systems with pertinent positive or pertinent negative responses have been documented in the HPI. ROS Other: All systems not noted in ROS Statement are negative. Past Medical History Past Medical History: Asthma, Thyroid Disorder History of Any Multi-Drug Resistant Organisms: None Reported Past Surgical History: Section Past Anesthesia/Blood Transfusion Reactions: Postoperative Nausea & Vomiting (PONV) Past Psychological History: Anxiety, Bipolar, Depression Smoking Status: Former smoker Past Alcohol Use History: Occasional Past Drug Use History: Marijuana General Exam - General Exam Comments Initial Comments: Is a well-developed well-nourished awake alert oriented history female Limitations: no limitations General appearance: alert, anxious, in distress Head exam: Present: atraumatic, normocephalic, normal inspection Eye exam: Present: normal appearance, PERRL, EOMI. Absent: scleral icterus, conjunctival injection, periorbital swelling ENT exam: Present: mucous membranes moist, other (Boggy swollen nasal mucosa with drainage is posterior pharyngeal hyperemia no definite exudates. Dull TMs bilaterally) Neck exam: Present: normal inspection, tenderness (No stridor JVD or bruits), full ROM, lymphadenopathy (Some tenderness to the anterior cervical chain), other. Absent: meningismus Respiratory exam: Present: decreased breath sounds. Absent: respiratory distress, wheezes, rales, rhonchi, stridor Cardiovascular Exam: Present: normal rhythm, tachycardia, normal heart sounds. Absent: systolic murmur, diastolic murmur, rubs, gallop, clicks GI/Abdominal exam: Present: soft, normal bowel sounds. Absent: distended, tenderness, guarding, rebound, rigid Extremities exam: Present: normal inspection, full ROM, normal capillary refill. Absent: tenderness, pedal edema, joint swelling, calf tenderness Back exam: Present: normal inspection Neurological exam: Present: alert, oriented X3, CN II-XII intact Psychiatric exam: Present: normal affect, normal mood Skin exam: Present: warm, dry, intact, normal color. Absent: rash Course Vital Signs 01/03/20 01/03/20 01/03/20 19:10 20:18 20:24 Temperature 102.3 F H Pulse Rate 120 H 101 H 103 H Respiratory 20 Rate Blood Pressure 135/82 O2 Sat by Pulse 99 Oximetry 01/03/20 01/03/20 21:29 21:43 Temperature 102.9 F H Pulse Rate 100 Respiratory 18 Rate Blood Pressure 132/69 O2 Sat by Pulse 98 Oximetry Medical Decision Making - Medical Decision Making I did reevaluate the patient she is feeling improved and did discuss the findings patient will be discharged on nonsteroidal anti-inflammatories she is continue with her oral fluids she is also outside the window for using Tamiflu. She appears be in agreement with this. - Lab Data Result diagrams: 01/03/20 19:48 01/03/20 19:48 Lab Results 01/03/20 01/03/20 01/03/20 Range/Units 19:48 19:48 19:48 WBC 5.2 (3.8-10.6) k/uL RBC 4.76 (3.80-5.40) m/uL Hgb 13.9 (11.4-16.0) gm/dL Hct 40.3 (34.0-46.0) % MCV 84.7 (80.0-100.0) fL MCH 29.1 (25.0-35.0) pg MCHC 34.4 (31.0-37.0) g/dL RDW 12.2 (11.5-15.5) % Plt Count 190 (150-450) k/uL Neutrophils % (Manual) 74 % Band Neutrophils % 1 % Lymphocytes % (Manual) 16 % Monocytes % (Manual) 4 % Eosinophils % (Manual) 5 % Neutrophils # (Manual) 3.90 (1.3-7.7) k/uL Lymphocytes # (Manual) 0.83 L (1.0-4.8) k/uL Monocytes # (Manual) 0.21 (0-1.0) k/uL Eosinophils # (Manual) 0.26 (0-0.7) k/uL Nucleated RBCs 0 (0-0) /100 WBC Manual Slide Review Performed Toxic Granulation Present Toxic Vacuolation Present Large Platelets Present Polychromasia Present Sodium 137 (137-145) mmol/L Potassium 4.0 (3.5-5.1) mmol/L Chloride 104 (98-107) mmol/L Carbon Dioxide 27 (22-30) mmol/L Anion Gap 6 mmol/L BUN 9 (7-17) mg/dL Creatinine 0.60 (0.52-1.04) mg/dL Est GFR (CKD-EPI)AfAm >90 (>60 ml/min/1.73 sqM) Est GFR (CKD-EPI)NonAf >90 (>60 ml/min/1.73 sqM) Glucose 100 H (74-99) mg/dL Calcium 8.8 (8.4-10.2) mg/dL Magnesium 2.1 (1.6-2.3) mg/dL Total Bilirubin 0.4 (0.2-1.3) mg/dL AST 32 (14-36) U/L ALT 26 (4-34) U/L Alkaline Phosphatase 48 (38-126) U/L Total Protein 7.4 (6.3-8.2) g/dL Albumin 4.6 (3.5-5.0) g/dL Group A Strep Rapid Negative (Negative) Blood Type Blood Type Recheck Bld Type Recheck Status Antibody Screen Crossmatch Spec Expiration Date 01/03/20 Range/Units 19:48 WBC (3.8-10.6) k/uL RBC (3.80-5.40) m/uL Hgb (11.4-16.0) gm/dL Hct (34.0-46.0) % MCV (80.0-100.0) fL MCH (25.0-35.0) pg MCHC (31.0-37.0) g/dL RDW (11.5-15.5) % Plt Count (150-450) k/uL Neutrophils % (Manual) % Band Neutrophils % % Lymphocytes % (Manual) % Monocytes % (Manual) % Eosinophils % (Manual) % Neutrophils # (Manual) (1.3-7.7) k/uL Lymphocytes # (Manual) (1.0-4.8) k/uL Monocytes # (Manual) (0-1.0) k/uL Eosinophils # (Manual) (0-0.7) k/uL Nucleated RBCs (0-0) /100 WBC Manual Slide Review Toxic Granulation Toxic Vacuolation Large Platelets Polychromasia Sodium (137-145) mmol/L Potassium (3.5-5.1) mmol/L Chloride (98-107) mmol/L Carbon Dioxide (22-30) mmol/L Anion Gap mmol/L BUN (7-17) mg/dL Creatinine (0.52-1.04) mg/dL Est GFR (CKD-EPI)AfAm (>60 ml/min/1.73 sqM) Est GFR (CKD-EPI)NonAf (>60 ml/min/1.73 sqM) Glucose (74-99) mg/dL Calcium (8.4-10.2) mg/dL Magnesium (1.6-2.3) mg/dL Total Bilirubin (0.2-1.3) mg/dL AST (14-36) U/L ALT (4-34) U/L Alkaline Phosphatase (38-126) U/L Total Protein (6.3-8.2) g/dL Albumin (3.5-5.0) g/dL Group A Strep Rapid (Negative) Blood Type O Positive Blood Type Recheck O Pos Bld Type Recheck Status No Antibody Screen NEGATIVE Crossmatch See Detail Spec Expiration Date 01/06/2020 - 0685 - Radiology Data Radiology results: report reviewed (I did review the imaging and report no acute findings.), image reviewed Disposition Clinical Impression: Influenza, Viral syndrome, Febrile illness, acute, Dehydration Disposition: HOME SELF-CARE Condition: Good Instructions (If sedation given, give patient instructions): Fever in Adults (ED), Influenza (ED), Dehydration (ED) Additional Instructions: Prescriptions sent to your preferred [facility] pharmacy Prescriptions: Ibuprofen 800 mg PO Q6HR PRN #20 tablet PRN Reason: Pain Is patient prescribed a controlled substance at d/c from ED?: No Referrals: Gorge Courtney DO [Primary Care Provider] - 1-2 days
[2020-01-03 20:10] LABS: HCT 40.3 % (34.0-46.0); HGB 13.9 gm/dL (11.4-16.0); MCH 29.1 pg (25.0-35.0); MCHC 34.4 g/dL (31.0-37.0); MCV 84.7 fL (80.0-100.0); Mean Platelet Volume 8.2; Platelet Count 190 k/uL (150-450); RBC 4.76 m/uL (3.80-5.40); RDW 12.2 % (11.5-15.5); WBC 5.2 k/uL (3.8-10.6)
--- NOTE | 2020-01-03 20:13 | XR ---
EXAMINATION TYPE: XR chest 2V DATE OF EXAM: 01/03/2020 COMPARISON: None INDICATION: Cough short of breath TECHNIQUE: Frontal and lateral views of the chest are obtained. FINDINGS: The heart size is normal. The pulmonary vasculature is normal. The lungs are clear. IMPRESSION: 1. No acute pulmonary process.
[2020-01-03 20:17] LABS: ALT 26 U/L (4-34); AST 32 U/L (14-36); African American GFR (CKD) >90 (>60 ml/min/1.73 sqM); Albumin 4.6 g/dL (3.5-5.0); Alkaline Phosphatase 48 U/L (38-126); Anion Gap 6 mmol/L; Blood Urea Nitrogen 9 mg/dL (7-17); Calcium 8.8 mg/dL (8.4-10.2); Carbon Dioxide 27 mmol/L (22-30); Chloride 104 mmol/L (98-107); Glucose 100 mg/dL (74-99); Magnesium 2.1 mg/dL (1.6-2.3); Non-African American GFR(CKD) >90 (>60 ml/min/1.73 sqM); Sodium 137 mmol/L (137-145); Total Bilirubin 0.4 mg/dL (0.2-1.3); Total Protein 7.4 g/dL (6.3-8.2)
[2020-01-03 20:51] LABS: Band Neutrophils % 1 %; Eosinophils # (M) 0.26 k/uL (0-0.7); Lymphocytes # (M) 0.83 k/uL (1.0-4.8); Monocytes # (M) 0.21 k/uL (0-1.0); Neutrophils % (M) 74 %; Nucleated Red Blood Cells 0 /100 WBC (0-0); Total Cells Counted 100; Toxic Vacuolation Present
[2020-01-03 20:52] LABS: Large Platelets Present; Polychromasia Present; Toxic Granulation Present
[2020-01-03] MEDS ORDERED: ACETAMINOPHEN TAB 500 MG TAB PO STA (21:32)
[2020-01-03 21:44] VITALS: BP 132/69; PULSE 100; RESP 18
[2020-01-03] MEDS ORDERED: KETOROLAC 30 MG/ML 1 ML VIAL IVP STA (21:53)
[2020-01-03 22:10] VITALS: TEMP 99
== END 2020-01-03 22:11 | disposition home or self-care (01) ==
LOC: EC 18:55
DX: J10.1 Influenza due to other identified influenza virus with other respiratory manifestations (principal); E86.0 Dehydration; R00.0 Tachycardia, unspecified; Z87.891 Personal history of nicotine dependence; Z88.0 Allergy status to penicillin; Z87.09 Personal history of other diseases of the respiratory system
CPT/HCPCS: 36415; 94640; 86900; 86901; 80053; 83735; 85025; 86850; 87081; 87430; 71046; 99284; 96374; 96361 ×2; J1885

== ENCOUNTER → 2021-03-25 | Outpatient (CLI) | payer BC ==
--- NOTE | 2021-03-25 16:21 | XR ---
EXAMINATION TYPE: XR lumbar spine 2 or 3V DATE OF EXAM: 03/25/2021 CLINICAL HISTORY: Low back pain. No injury. TECHNIQUE: Frontal and lateral images of the lumbar spine are obtained. COMPARISON: None FINDINGS: There are 5 lumbar type vertebral bodies identified. The lumbar spine shows satisfactory alignment , however straightening of the lumbar lordosis. No evidence of acute fracture or subluxatio n. No spondylolisthesis. Vertebral body heights and disk space heights are within normal limits. Ther e is mild degenerative disc disease endplate spurring of the thoracolumbar spine. The oblique images appear within normal limits. The overlying soft tissue appears unremarkable. IMPRESSION: 1. Mild degenerative disc disease of the thoracolumbar spine. 2. Straightening of the lumbar lordosis.
== END | disposition home or self-care (01) ==
LOC: RADXRMAIN 14:06
PROVIDERS: ATTEND Nurse Practitioner Family
DX: M51.35 Other intervertebral disc degeneration, thoracolumbar region (principal)
CPT/HCPCS: 72100

== ENCOUNTER 2022-10-02 13:08 | Emergency (ER) | payer BC ==
[2022-10-02 14:05] VITALS: TEMP 98.5
[2022-10-02] MEDS ORDERED: SODIUM CHLORIDE 0.9% 1,000 ML IV STA (16:14)
[2022-10-02 16:43] LABS: Basophils % (A) 0 %; Eosinophils # (A) 0.3 k/uL (0-0.7); Eosinophils % (A) 4 %; HCT 38.1 % (34.0-46.0); HGB 12.7 gm/dL (11.4-16.0); Lymphocytes # (A) 1.8 k/uL (1.0-4.8); Lymphocytes % (A) 23 %; MCH 27.2 pg (25.0-35.0); MCHC 33.3 g/dL (31.0-37.0); MCV 81.6 fL (80.0-100.0); Mean Platelet Volume 8.7; Monocytes # (A) 0.2 k/uL (0-1.0); Monocytes % (A) 3 %; Neutrophils # (A) 5.2 k/uL (1.3-7.7); Neutrophils % (A) 68 %; Platelet Count 229 k/uL (150-450); RBC 4.67 m/uL (3.80-5.40); WBC 7.7 k/uL (3.8-10.6)
[2022-10-02 16:55] LABS: INR 0.9 (<1.2); Partial Thromboplastin Time 28.9 sec (22.0-30.0)
[2022-10-02 16:59] LABS: ALT 29 U/L (4-34); AST 27 U/L (14-36); African American GFR (CKD) >90 (>60 ml/min/1.73 sqM); Albumin 4.6 g/dL (3.5-5.0); Alkaline Phosphatase 77 U/L (38-126); Anion Gap 10 mmol/L; Blood Urea Nitrogen 16 mg/dL (7-17); Calcium 8.8 mg/dL (8.4-10.2); Carbon Dioxide 21 mmol/L (22-30); Chloride 109 mmol/L (98-107); Glucose 109 mg/dL (74-99); Magnesium 2.1 mg/dL (1.6-2.3); Non-African American GFR(CKD) >90 (>60 ml/min/1.73 sqM); Potassium 3.4 mmol/L (3.5-5.1); Sodium 140 mmol/L (137-145); Total Bilirubin 0.3 mg/dL (0.2-1.3); Total Protein 6.9 g/dL (6.3-8.2)
[2022-10-02] MEDS ORDERED: POTASSIUM CHLORIDE ER 20 MEQ TAB.ER PO STA (17:29)
--- NOTE | 2022-10-02 17:35 | XR ---
EXAMINATION TYPE: XR chest 2V DATE OF EXAM: 10/02/2022 COMPARISON: 01/03/2020 HISTORY: Dysrhythmia TECHNIQUE: 2 views FINDINGS: Heart and mediastinum are normal. Lungs are clear. Diaphragm is normal. Bony thorax is inta ct. IMPRESSION: Normal chest. No change.
--- NOTE | 2022-10-02 19:02 | ED ---
Arrhythmia/Palpitations HPI - General Chief Complaint: Arrhythmia/Palpitations Stated Complaint: sent for cardiac workup Time Seen by Provider: 10/02/22 16:07 Source: patient Mode of arrival: ambulatory Limitations: no limitations - History of Present Illness Initial Comments: Patient is a 32-year-old female presenting with chief complaint of palpitations. Patient states that today she has had episodes of feeling as though her heart is racing. Her smart watch showed a resting heart rate of over 100 at times. Patient to intermittent chest pain that is reproducible. She has history of anxiety and panic attacks. She denies any nausea, vomiting, dizziness, difficulty breathing, abdominal pain, headache, vision or hearing changes, neck pain or stiffness, fever, chills, cough, congestion, sore throat, sinus pain, numbness, tingling, weakness. - Related Data Previous Rx's Medication Instructions Recorded OXcarbazepine [Trileptal] 300 mg PO BID 30 Days #60 tab 01/31/18 QUEtiapine [SEROquel] 100 mg PO HS 30 Days #30 tab 01/31/18 Ibuprofen 800 mg PO Q6HR PRN #20 tablet 01/03/20 hydrOXYzine HCL [Atarax] 25 mg PO DAILY PRN #5 tab 10/02/22 Allergies Allergy/AdvReac Type Severity Reaction Status Date / Time Penicillins Allergy Swelling Verified 10/02/22 14:05 Review of Systems ROS Statement: Those systems with pertinent positive or pertinent negative responses have been documented in the HPI. ROS Other: All systems not noted in ROS Statement are negative. Past Medical History Past Medical History: Asthma, Thyroid Disorder History of Any Multi-Drug Resistant Organisms: None Reported Past Surgical History: Section Past Anesthesia/Blood Transfusion Reactions: Postoperative Nausea & Vomiting (PONV) Past Psychological History: Anxiety, Bipolar, Depression Smoking Status: Vaper Past Alcohol Use History: Occasional Past Drug Use History: Marijuana General Exam Limitations: no limitations General appearance: alert, in no apparent distress Head exam: Present: atraumatic, normocephalic, normal inspection Eye exam: Present: normal appearance Neck exam: Present: normal inspection, full ROM Respiratory exam: Present: normal lung sounds bilaterally, chest wall tenderness. Absent: respiratory distress, wheezes, rales, rhonchi, stridor Cardiovascular Exam: Present: regular rate, normal rhythm, normal heart sounds. Absent: systolic murmur, diastolic murmur, rubs, gallop, clicks Neurological exam: Present: alert, oriented X3, CN II-XII intact Psychiatric exam: Present: normal affect, normal mood Skin exam: Present: warm, dry, intact, normal color. Absent: rash Course Vital Signs 10/02/22 10/02/22 10/02/22 14:02 17:04 18:04 Temperature 98.5 F Pulse Rate 87 104 H 87 Respiratory 20 16 16 Rate Blood Pressure 123/70 120/70 107/79 O2 Sat by Pulse 100 98 Oximetry EKG Findings - EKG Comments: EKG Findings:: Sinus rhythm on rate of 77. PA interval 158. QRS 88. QT 405. QTC 437. T-wave inversion in lead 3. EKG was interpreted by me and also shown to and interpreted by my attending Dr. Davis. Medical Decision Making - Medical Decision Making Patient is a 32-year-old female presenting with chief complaint of elevated heart rate and intermittent chest pain. On examination the pain is reproducible on palpation. Heart and lungs are clear to auscultation. CBC and coags are unremarkable. Potassium is 3.4, patient given 20 mEq. Troponin is less than 0.012. Remainder of CMP is unremarkable. Urine shows contamination, will be sent for culture. HCG is negative. Toxicology is positive for TCAs, patient confirms she is currently prescribed. Chest x-ray shows no acute process. EKG shows no ischemic changes. Patient is given prescription for hydroxyzine for acute anxiety and she states that she has a history of panic attacks. Instructed to follow-up with PCP and inquire about Holter monitor. Follow-up with PCP. Report back to ER with any new or worsening symptoms. Discussed return parameters and answered all questions. Patient conveyed verbal understanding and agreed to the plan. I discussed this case in detail with my attending Dr. Davis - Lab Data Result diagrams: 10/02/22 16:25 10/02/22 16:25 Lab Results 10/02/22 10/02/22 10/02/22 Range/Units 16:25 16:25 16:25 WBC 7.7 (3.8-10.6) k/uL RBC 4.67 (3.80-5.40) m/uL Hgb 12.7 (11.4-16.0) gm/dL Hct 38.1 (34.0-46.0) % MCV 81.6 (80.0-100.0) fL MCH 27.2 (25.0-35.0) pg MCHC 33.3 (31.0-37.0) g/dL RDW 13.0 (11.5-15.5) % Plt Count 229 (150-450) k/uL MPV 8.7 Neutrophils % 68 % Lymphocytes % 23 % Monocytes % 3 % Eosinophils % 4 % Basophils % 0 % Neutrophils # 5.2 (1.3-7.7) k/uL Lymphocytes # 1.8 (1.0-4.8) k/uL Monocytes # 0.2 (0-1.0) k/uL Eosinophils # 0.3 (0-0.7) k/uL Basophils # 0.0 (0-0.2) k/uL PT 10.0 (9.0-12.0) sec INR 0.9 (<1.2) APTT 28.9 (22.0-30.0) sec Sodium 140 (137-145) mmol/L Potassium 3.4 L (3.5-5.1) mmol/L Chloride 109 H (98-107) mmol/L Carbon Dioxide 21 L (22-30) mmol/L Anion Gap 10 mmol/L BUN 16 (7-17) mg/dL Creatinine 0.69 (0.52-1.04) mg/dL Est GFR (CKD-EPI)AfAm >90 (>60 ml/min/1.73 sqM) Est GFR (CKD-EPI)NonAf >90 (>60 ml/min/1.73 sqM) Glucose 109 H (74-99) mg/dL POC Glucose (mg/dL) (70-110) mg/dL POC Glu Animal Rehabilitator ID Calcium 8.8 (8.4-10.2) mg/dL Magnesium 2.1 (1.6-2.3) mg/dL Total Bilirubin 0.3 (0.2-1.3) mg/dL AST 27 (14-36) U/L ALT 29 (4-34) U/L Alkaline Phosphatase 77 (38-126) U/L Troponin I (0.000-0.034) ng/mL Total Protein 6.9 (6.3-8.2) g/dL Albumin 4.6 (3.5-5.0) g/dL TSH 1.620 (0.465-4.680) mIU/L Urine Color Urine Appearance (Clear) Urine pH (5.0-8.0) Ur Specific Silva (1.001-1.035) Urine Protein (Negative) Urine Glucose (UA) (Negative) Urine Ketones (Negative) Urine Blood (Negative) Urine Nitrite (Negative) Urine Bilirubin (Negative) Urine Urobilinogen (<2.0) mg/dL Ur Leukocyte Esterase (Negative) Urine RBC (0-5) /hpf Urine WBC (0-5) /hpf Ur Squamous Epith Cells (0-4) /hpf Urine Mucus (None) /hpf Urine HCG, Qual (Not Detectd) Urine Opiates Screen (NotDetected) Ur Oxycodone Screen (NotDetected) Urine Methadone Screen (NotDetected) Ur Propoxyphene Screen (NotDetected) Ur Barbiturates Screen (NotDetected) U Tricyclic Antidepress (NotDetected) Ur Phencyclidine Scrn (NotDetected) Ur Amphetamines Screen (NotDetected) U Methamphetamines Scrn (NotDetected) U Benzodiazepines Scrn (NotDetected) Urine Cocaine Screen (NotDetected) U Marijuana (THC) Screen (NotDetected) 10/02/22 10/02/22 10/02/22 Range/Units 16:25 18:53 18:53 WBC (3.8-10.6) k/uL RBC (3.80-5.40) m/uL Hgb (11.4-16.0) gm/dL Hct (34.0-46.0) % MCV (80.0-100.0) fL MCH (25.0-35.0) pg MCHC (31.0-37.0) g/dL RDW (11.5-15.5) % Plt Count (150-450) k/uL MPV Neutrophils % % Lymphocytes % % Monocytes % % Eosinophils % % Basophils % % Neutrophils # (1.3-7.7) k/uL Lymphocytes # (1.0-4.8) k/uL Monocytes # (0-1.0) k/uL Eosinophils # (0-0.7) k/uL Basophils # (0-0.2) k/uL PT (9.0-12.0) sec INR (<1.2) APTT (22.0-30.0) sec Sodium (137-145) mmol/L Potassium (3.5-5.1) mmol/L Chloride (98-107) mmol/L Carbon Dioxide (22-30) mmol/L Anion Gap mmol/L BUN (7-17) mg/dL Creatinine (0.52-1.04) mg/dL Est GFR (CKD-EPI)AfAm (>60 ml/min/1.73 sqM) Est GFR (CKD-EPI)NonAf (>60 ml/min/1.73 sqM) Glucose (74-99) mg/dL POC Glucose (mg/dL) (70-110) mg/dL POC Glu Animal Rehabilitator ID Calcium (8.4-10.2) mg/dL Magnesium (1.6-2.3) mg/dL Total Bilirubin (0.2-1.3) mg/dL AST (14-36) U/L ALT (4-34) U/L Alkaline Phosphatase (38-126) U/L Troponin I <0.012 (0.000-0.034) ng/mL Total Protein (6.3-8.2) g/dL Albumin (3.5-5.0) g/dL TSH (0.465-4.680) mIU/L Urine Color Light Yellow Urine Appearance Cloudy H (Clear) Urine pH 7.5 (5.0-8.0) Ur Specific Silva 1.012 (1.001-1.035) Urine Protein Negative (Negative) Urine Glucose (UA) Negative (Negative) Urine Ketones Negative (Negative) Urine Blood Negative (Negative) Urine Nitrite Negative (Negative) Urine Bilirubin Negative (Negative) Urine Urobilinogen <2.0 (<2.0) mg/dL Ur Leukocyte Esterase Moderate H (Negative) Urine RBC <1 (0-5) /hpf Urine WBC 2 (0-5) /hpf Ur Squamous Epith Cells 2 (0-4) /hpf Urine Mucus Rare H (None) /hpf Urine HCG, Qual Not Detected (Not Detectd) Urine Opiates Screen Not Detected (NotDetected) Ur Oxycodone Screen Not Detected (NotDetected) Urine Methadone Screen Not Detected (NotDetected) Ur Propoxyphene Screen Not Detected (NotDetected) Ur Barbiturates Screen Not Detected (NotDetected) U Tricyclic Antidepress Detected H (NotDetected) Ur Phencyclidine Scrn Not Detected (NotDetected) Ur Amphetamines Screen Not Detected (NotDetected) U Methamphetamines Scrn Not Detected (NotDetected) U Benzodiazepines Scrn Not Detected (NotDetected) Urine Cocaine Screen Not Detected (NotDetected) U Marijuana (THC) Screen Not Detected (NotDetected) 10/02/22 Range/Units 19:28 WBC (3.8-10.6) k/uL RBC (3.80-5.40) m/uL Hgb (11.4-16.0) gm/dL Hct (34.0-46.0) % MCV (80.0-100.0) fL MCH (25.0-35.0) pg MCHC (31.0-37.0) g/dL RDW (11.5-15.5) % Plt Count (150-450) k/uL MPV Neutrophils % % Lymphocytes % % Monocytes % % Eosinophils % % Basophils % % Neutrophils # (1.3-7.7) k/uL Lymphocytes # (1.0-4.8) k/uL Monocytes # (0-1.0) k/uL Eosinophils # (0-0.7) k/uL Basophils # (0-0.2) k/uL PT (9.0-12.0) sec INR (<1.2) APTT (22.0-30.0) sec Sodium (137-145) mmol/L Potassium (3.5-5.1) mmol/L Chloride (98-107) mmol/L Carbon Dioxide (22-30) mmol/L Anion Gap mmol/L BUN (7-17) mg/dL Creatinine (0.52-1.04) mg/dL Est GFR (CKD-EPI)AfAm (>60 ml/min/1.73 sqM) Est GFR (CKD-EPI)NonAf (>60 ml/min/1.73 sqM) Glucose (74-99) mg/dL POC Glucose (mg/dL) 142 H (70-110) mg/dL POC Glu Animal Rehabilitator ID Isaak Grijalva Calcium (8.4-10.2) mg/dL Magnesium (1.6-2.3) mg/dL Total Bilirubin (0.2-1.3) mg/dL AST (14-36) U/L ALT (4-34) U/L Alkaline Phosphatase (38-126) U/L Troponin I (0.000-0.034) ng/mL Total Protein (6.3-8.2) g/dL Albumin (3.5-5.0) g/dL TSH (0.465-4.680) mIU/L Urine Color Urine Appearance (Clear) Urine pH (5.0-8.0) Ur Specific Silva (1.001-1.035) Urine Protein (Negative) Urine Glucose (UA) (Negative) Urine Ketones (Negative) Urine Blood (Negative) Urine Nitrite (Negative) Urine Bilirubin (Negative) Urine Urobilinogen (<2.0) mg/dL Ur Leukocyte Esterase (Negative) Urine RBC (0-5) /hpf Urine WBC (0-5) /hpf Ur Squamous Epith Cells (0-4) /hpf Urine Mucus (None) /hpf Urine HCG, Qual (Not Detectd) Urine Opiates Screen (NotDetected) Ur Oxycodone Screen (NotDetected) Urine Methadone Screen (NotDetected) Ur Propoxyphene Screen (NotDetected) Ur Barbiturates Screen (NotDetected) U Tricyclic Antidepress (NotDetected) Ur Phencyclidine Scrn (NotDetected) Ur Amphetamines Screen (NotDetected) U Methamphetamines Scrn (NotDetected) U Benzodiazepines Scrn (NotDetected) Urine Cocaine Screen (NotDetected) U Marijuana (THC) Screen (NotDetected) Disposition Clinical Impression: Palpitations Disposition: HOME SELF-CARE Condition: Good Instructions (If sedation given, give patient instructions): Heart Palpitations (ED) Additional Instructions: Follow-up with PCP. May require Holter monitor. Report back to ER with any new or worsening symptoms. Take medication as prescribed. Prescriptions: hydrOXYzine HCL [Atarax] 25 mg PO DAILY PRN #5 tab PRN Reason: Anxiety Is patient prescribed a controlled substance at d/c from ED?: No Referrals: Gorge Courtney DO [Primary Care Provider] - 1-2 days Time of Disposition: 19:01
[2022-10-02 19:17] VITALS: RESP 16
[2022-10-02 19:18] VITALS: BP 107/79; PULSE 87
[2022-10-02 19:20] LABS: Appearance,Urine Cloudy (Clear); Bilirubin,Urine Negative (Negative); Blood,Urine Negative (Negative); Color,Urine Light Yellow; Glucose,Urine (UA) Negative (Negative); Ketones,Urine Negative (Negative); Leukocyte Esterase,Urine Moderate (Negative); Mucus,Urine Rare /hpf; Nitrite,Urine Negative (Negative); PH, Urine 7.5 (5.0-8.0); Protein,Urine Negative (Negative); RBC,Urine <1 /hpf (0-5); Specific Gravity,Urine 1.012 (1.001-1.035); Squamous Epithelial Cell,Urine 2 /hpf (0-4); Urobilinogen,Urine <2.0 mg/dL (<2.0); WBC,Urine 2 /hpf (0-5)
[2022-10-02 19:30] LABS: Glucose,Whole Blood 142 mg/dL (70-110)
[2022-10-02 19:48] LABS: Amphetamine Screen,Urine Not Detected (NotDetected); Barbiturate Screen,Urine Not Detected (NotDetected); Benzodiazepines Screen,Urine Not Detected (NotDetected); Cocaine Screen,Urine Not Detected (NotDetected); Methadone Screen, Urine Not Detected (NotDetected); Opiate Screen,Urine Not Detected (NotDetected); Oxycodone Screen, Urine Not Detected (NotDetected); Phencyclidine Screen,Urine Not Detected (NotDetected); Tricyclic Antidepressant,Urine Detected (NotDetected); Urn Cannabinoid Scrn Not Detected (NotDetected)
== END 2022-10-02 19:49 | disposition home or self-care (01) ==
LOC: EC 13:08
DX: R00.2 Palpitations (principal); J45.909 Unspecified asthma, uncomplicated; E03.9 Hypothyroidism, unspecified; F41.9 Anxiety disorder, unspecified; F31.9 Bipolar disorder, unspecified; F17.290 Nicotine dependence, other tobacco product, uncomplicated; F12.90 Cannabis use, unspecified, uncomplicated; Z79.899 Other long term (current) drug therapy; Z88.0 Allergy status to penicillin
CPT/HCPCS: 36415; 71046; 80053; 80306; 81001; 81025; 83735; 84443; 84484; 85025; 85610; 85730; 93005; 96360; 99285

== ENCOUNTER 2023-08-03 16:22 | Emergency (ER) | payer BC ==
[2023-08-03 16:31] VITALS: RESP 18
--- NOTE | 2023-08-03 16:47 | ED ---
General Adult HPI - General Source: patient Mode of arrival: ambulatory Limitations: no limitations <New Gaines - Last Filed: 08/03/23 16:50> - History of Present Illness -: unknown Improves with: none Worsens with: none Associated Symptoms: loss of appetite, malaise, weakness Treatments Prior to Arrival: none <Mark Garcia - Last Filed: 08/06/23 21:05> - General Chief complaint: Psychiatric Symptoms Stated complaint: PSYCH EVAL - History of Present Illness Initial comments: 33-year-old female presenting to the ED with a chief complaint of mental health. She states has difficulties with depression. More recently, has had more thoughts of suicide especially when driving. States that she would get into a car crash as her plan of suicide. Notes prior admission for self-harm in the past. Denies homicidal ideation. Lives at home with her girlfriend and children where she feels safe. Has no access to firearms. (New Gaines) This is a 33 female presents to the emergency room today for psychiatric evaluation. Patient is severely depressed currently (Mark Garcia) - Related Data Home Medications Medication Instructions Recorded Confirmed Albuterol Inhaler [Ventolin Hfa 1 - 2 puff INHALATION RT-QID PRN 08/03/23 08/03/23 Inhaler] FLUoxetine HCL [PROzac] 20 mg PO DAILY 08/03/23 08/03/23 Omeprazole [PriLOSEC] 20 mg PO DAILY 08/03/23 08/03/23 QUEtiapine FUMARATE [SEROquel XR] 300 mg PO HS 08/03/23 08/03/23 busPIRone HCl [Buspar] 5 mg PO BID 08/03/23 08/03/23 Allergies Allergy/AdvReac Type Severity Reaction Status Date / Time Penicillins Allergy Swelling/Hi Verified 08/03/23 21:52 ves Review of Systems ROS Other: All systems not noted in ROS Statement are negative. <New Gaines - Last Filed: 08/03/23 16:50> ROS Other: All systems not noted in ROS Statement are negative. <Mark Garcia - Last Filed: 08/06/23 21:05> ROS Statement: Those systems with pertinent positive or pertinent negative responses have been documented in the HPI. Past Medical History Past Medical History: Asthma, Thyroid Disorder History of Any Multi-Drug Resistant Organisms: None Reported Past Surgical History: Section Past Anesthesia/Blood Transfusion Reactions: Postoperative Nausea & Vomiting (PONV) Past Psychological History: Anxiety, Bipolar, Depression Smoking Status: Vaper Past Alcohol Use History: Occasional Past Drug Use History: Marijuana <New Gaines - Last Filed: 08/03/23 16:50> General Exam Limitations: no limitations General appearance: alert, in no apparent distress Head exam: Present: normal inspection Eye exam: Present: normal appearance Neck exam: Present: normal inspection Extremities exam: Present: normal inspection Back exam: Present: normal inspection <New Gaines - Last Filed: 08/03/23 16:50> General appearance: alert, in no apparent distress, anxious Head exam: Present: atraumatic, normocephalic, normal inspection Eye exam: Present: normal appearance, PERRL, EOMI. Absent: scleral icterus, conjunctival injection, periorbital swelling ENT exam: Present: normal exam, mucous membranes moist Neck exam: Present: normal inspection. Absent: tenderness, meningismus, lym phadenopathy Respiratory exam: Present: normal lung sounds bilaterally. Absent: respiratory distress, wheezes, rales, rhonchi, stridor Cardiovascular Exam: Present: regular rate, normal rhythm, normal heart sounds. Absent: systolic murmur, diastolic murmur, rubs, gallop, clicks GI/Abdominal exam: Present: soft, normal bowel sounds. Absent: distended, tenderness, guarding, rebound, rigid Extremities exam: Present: normal inspection, full ROM, normal capillary refill. Absent: tenderness, pedal edema, joint swelling, calf tenderness Back exam: Present: normal inspection Neurological exam: Present: alert, oriented X3, CN II-XII intact Psychiatric exam: Present: normal affect, normal mood Skin exam: Present: warm, dry, intact, normal color. Absent: rash <Makr Garcia - Last Filed: 08/06/23 21:05> Course <Mark Garcia - Last Filed: 08/06/23 21:05> Vital Signs 08/03/23 08/03/23 16:28 22:51 Temperature 98.6 F 98.5 F Pulse Rate 97 111 H Respiratory 18 18 Rate Blood Pressure 109/74 122/87 O2 Sat by Pulse 97 96 Oximetry - Reevaluation(s) Reevaluation #1: 08/03/23 19:49 Medical records reviewed (Mark Garcia) Reevaluation #2: 08/03/23 19:49 Medically clear for psychiatric evaluation (Mark Garcia) Medical Decision Making <New Gaines - Last Filed: 08/03/23 16:50> <Mark Garcia - Last Filed: 08/06/23 21:05> - Medical Decision Making Quicknote portion performed. Signed New Gaines PA-C (New Gaines) 33 female significant metabolic psychiatry here in the ER, patient is stable for discharge home (Mark Garcia) Disposition <New Gaines - Last Filed: 08/03/23 16:50> Is patient prescribed a controlled substance at d/c from ED?: No <Mark Garcia - Last Filed: 08/06/23 21:05> Clinical Impression: Depression Disposition: HOME SELF-CARE Condition: Fair Instructions (If sedation given, give patient instructions): Depression (ED) Referrals: Gorge Courtney DO [Primary Care Provider] - 1-2 days
[2023-08-03 22:54] VITALS: BP 122/87; PULSE 111; TEMP 98.5
== END 2023-08-03 22:51 | disposition home or self-care (01) ==
LOC: EC 16:22
DX: F32.A Depression, unspecified (principal); J45.909 Unspecified asthma, uncomplicated; F41.9 Anxiety disorder, unspecified; F17.290 Nicotine dependence, other tobacco product, uncomplicated; F12.90 Cannabis use, unspecified, uncomplicated; Z79.899 Other long term (current) drug therapy; Z88.0 Allergy status to penicillin
CPT/HCPCS: 82075; 99285

== ENCOUNTER → 2023-12-07 | Outpatient (CLI) | payer BC ==
[2023-12-08 06:23] LABS: EBV - VCA (IgG) >750.0 U/mL (<18.0); EBV - VCA IgM <10.0 U/mL (<36.0)
== END | disposition home or self-care (01) ==
LOC: LABWHC1 14:51
PROVIDERS: ATTEND Family Medicine
DX: J31.2 Chronic pharyngitis (principal)
CPT/HCPCS: 36415; 86665; 87070

== ENCOUNTER → 2024-06-13 | Outpatient (CLI) | payer BC ==
--- NOTE | 2024-06-13 16:58 | US ---
EXAMINATION TYPE: US pelvis complete transvag DATE OF EXAM: 06/13/2024 COMPARISON: NONE CLINICAL INDICATION: Female, 34 years old with history of N92.1 EXCESSIVE AND FREQUENT MENSTRUATION W ITH IRR; Bleeding. Irregular periods. . Hx 1 C section. TECHNIQUE: Transvaginal (TV) and Transabdominal (TA) . Transabdominal sonographic images of the pel vis were acquired. Transvaginal sonographic images were medically necessary to better assess the fol lowing anatomy: TV per order. Date of LMP: Unknown per patient. EXAM MEASUREMENTS: Uterus: 11.0 x 6.3 x 4.6 cm Endometrial Stripe: 0.67 cm Right Ovary: 3.1 x 2.5 x 2.1 cm Left Ovary: 3.1 x 1.7 x 2.1 cm 1. Uterus: Enlarged, anteverted. *Hypoechoic area seen posteriorly: 0.9 x 0.8 x 0.8 cm. Subcentimeter anechoic areas seen within the cervix. 2. Endometrium: Measures 0.67 cm. 3. Right Ovary: Appears wnl 4. Left Ovary: Appears wnl 5. Bilateral Adnexa: Hypoechoic area seen adjacent to the right ovary in the right adnexa measurin .9 x 1.7 x 1.7 cm. 6. Posterior cul-de-sac: Appears wnl IMPRESSION: 1. Correlate for leiomyomatous change of the uterus. 2. Hypoechoic lesion right ovary may reflect a complex ovarian cyst. This can be confirmed with follo w-up study in 6 weeks.
== END | disposition home or self-care (01) ==
LOC: RADUSWWP 16:15
PROVIDERS: ATTEND Family Medicine
DX: N85.4 Malposition of uterus (principal); N92.1 Excessive and frequent menstruation with irregular cycle
CPT/HCPCS: 76830; 76856

== ENCOUNTER → 2025-02-05 | Outpatient (CLI) | payer OTHER ==
--- NOTE | 2025-02-05 17:45 | CT ---
EXAMINATION TYPE: CT angio chest DATE OF EXAM: 02/05/2025 5:34 PM COMPARISON: Chest radiograph from 10/02/2022 CLINICAL INDICATION: Female, 35 years old with history of R06.00 DYSPNEA R00.0 TACHYCARDIA; Dyspnea a nd tachycardia. TECHNIQUE/CONTRAST: CTA scan of the thorax is performed with IV Contrast, patient injected with 100 ml mL of Isovue 370, MIP images are created and reviewed these are created on a separate workstation.. CT DLP: 481.4 mGycm, Automated exposure control for dose reduction was used. FINDINGS: Lungs/Pleura: No evidence of focal consolidation, pleural effusion or pneumothorax. Airway: Large airways are patent. Heart: Size within normal limits. No significant coronary artery calcifications. Vasculature: There is no evidence for a filling defect within the pulmonary vasculature to suggest ac jossue pulmonary embolism. The pulmonary artery is of normal size. Mediastinum: No gross evidence of adenopathy. Musculoskeletal: No acute osseous abnormalities Soft Tissues/lymph nodes: Unremarkable. Lower neck: No significant findings. Upper Abdomen: No significant findings. IMPRESSION: 1. No evidence of pulmonary embolism. 2. No acute process. Follow up recommendations for incidental pulmonary nodules, if there are any, are per [employer] [employer] or [employer]. https://radiopaedia.org/articles/oqjvybzaex-qejkaio-vnrdhcwgl-grehne-[email or web address]-[email or web address]?lang=us [facility], , 02/05/2025 5:43 PM
== END | disposition home or self-care (01) ==
LOC: RADCTMAIN 17:09
PROVIDERS: ATTEND Family Medicine
DX: R06.00 Dyspnea, unspecified (principal); R00.0 Tachycardia, unspecified
CPT/HCPCS: 71275; Q9967

== ENCOUNTER 2025-05-01 19:22 | Emergency (ER) | payer OTHER ==
--- NOTE | 2025-05-01 19:46 | ED ---
Abdominal Pain HPI - General Source: patient, RN notes reviewed Mode of arrival: ambulatory Limitations: no limitations <Nina Ralph - Last Filed: 05/01/25 19:46> - General Source: patient, RN notes reviewed <Miguelina Liang - Last Filed: 05/02/25 04:04> - General Stated Complaint: Abd Pain Time Seen by Provider: 05/01/25 19:46 - History of Present Illness Initial Comments: Quick note: 35-year-old female presented the ER for evaluation of abdominal pain. Patient states last night she started to experience right lower quadrant abdominal pain. She also admits to diarrhea and nausea. She reports over the past couple weeks she has noted bruising to this area that has come and gone. Denies any fevers or chills. (Nina Ralph) 35-year-old female presenting to the ER for right lower quadrant abdominal pain x 1 day. States the pain began in the middle of the night last night. Describes and intermittent, sharp pain that does not radiate. Also admits to diarrhea and nausea. Also reports some bruising in this area over the past couple of weeks. Denies fever, chills. Denies urinary symptoms. Last meal was at 8:30 AM this morning. No history of abdominal surgeries. (Miguelina Liang) - Related Data Home Medications Medication Instructions Recorded Confirmed Albuterol Inhaler [Ventolin Hfa 1 - 2 puff INHALATION RT-QID PRN 08/03/23 08/03/23 Inhaler] FLUoxetine HCL [PROzac] 20 mg PO DAILY 08/03/23 08/03/23 Omeprazole [PriLOSEC] 20 mg PO DAILY 08/03/23 08/03/23 QUEtiapine FUMARATE [SEROquel XR] 300 mg PO HS 08/03/23 08/03/23 busPIRone HCl [Buspar] 5 mg PO BID 08/03/23 08/03/23 Previous Rx's Medication Instructions Recorded Ketorolac [Toradol] 10 mg PO Q8HR #15 tab 05/02/25 Allergies Allergy/AdvReac Type Severity Reaction Status Date / Time Penicillins Allergy Swelling/Hi Verified 08/03/23 21:52 ves Review of Systems ROS Other: All systems not noted in ROS Statement are negative. <Nina Ralph - Last Filed: 05/01/25 19:46> ROS Other: All systems not noted in ROS Statement are negative. <LiangMiguelina - Last Filed: 05/02/25 04:04> ROS Statement: Those systems with pertinent positive or pertinent negative responses have been documented in the HPI. Past Medical History Past Medical History: Asthma, Thyroid Disorder History of Any Multi-Drug Resistant Organisms: None Reported Past Surgical History: Section Past Anesthesia/Blood Transfusion Reactions: Postoperative Nausea & Vomiting (PONV) Past Psychological History: Anxiety, Bipolar, Depression Smoking Status: Vaper Past Alcohol Use History: Occasional Past Drug Use History: Marijuana <Nina Ralph - Last Filed: 05/01/25 19:46> General Exam <Nina Ralph - Last Filed: 05/01/25 19:46> General appearance: alert, in no apparent distress Head exam: Present: atraumatic, normocephalic, normal inspection Eye exam: Present: normal appearance, PERRL, EOMI. Absent: scleral icterus, conjunctival injection, periorbital swelling GI/Abdominal exam: Present: soft, tenderness (Mild right lower quadrant abdominal tenderness to palpation, no overlying skin changes), normal bowel sounds. Absent: distended, guarding, rebound, rigid Neurological exam: Present: alert, oriented X3 Psychiatric exam: Present: normal affect, normal mood Skin exam: Present: warm, dry, intact, normal color. Absent: rash <Miguelina Liang - Last Filed: 05/02/25 04:04> - General Exam Comments Initial Comments: Visual Physical Exam Vital signs reviewed General: Well-appearing, nontoxic, no acute distress. Head: Normocephalic, atraumatic Eyes: PERRLA, EOMI ENT: Airway patent Chest: Nonlabored breathing Skin: No visual rash, normal skin tone Neuro: Alert and oriented 3 Musculoskeletal: No gross abnormalities (Nina Ralph) Course Vital Signs 05/01/25 05/02/25 05/02/25 19:45 00:48 03:08 Temperature 98.6 F 98.4 F Pulse Rate 86 88 84 Respiratory 18 19 18 Rate Blood Pressure 124/79 126/82 127/82 O2 Sat by Pulse 97 98 98 Oximetry Medical Decision Making <Nina Ralph - Last Filed: 05/01/25 19:46> - Lab Data Result diagrams: 05/01/25 21:52 05/01/25 21:52 <Miguelina Liang - Last Filed: 05/02/25 04:04> - Medical Decision Making I performed the quick note portion of this chart. Electronically signed by Nina Ralph PA-C (Nina Ralph) Was pt. sent in by a medical professional or institution (, SHANTEL, SENIOR ART DIRECTOR, urgent care, hospital, or correction...) When possible be specific @ -No Did you speak to anyone other than the patient for history (EMS, parent, family, police, friend...)? What history was obtained from this source @ -No Did you review nursing and triage notes (agree or disagree)? Why? @ -I reviewed and agree with nursing and triage notes Were old charts reviewed (outside hosp., previous admission, EMS record, old EKG, old radiological studies, urgent care reports/EKG's, correction records)? Report findings @ -No old charts were reviewed Differential Diagnosis (chest pain, altered mental status, abdominal pain women, abdominal pain men, vaginal bleeding, weakness, fever, dyspnea, syncope, headache, dizziness, GI bleed, back pain, seizure, CVA, palpatations, mental health, musculoskeletal)? @ -Differential Abdominal Pain Women: Appendicitis, Cholecystitis, diverticulosis, ischemic bowel, pancreatitis, hepatitis, UTI, gastroenteritis, AAA, incarcerated hernia, bowel obstruction, constipation, inflammatory bowel, hepatitis, peptic ulcer disease, splenic infarction, perforated viscus, vulvitis, ovarian torsion, PID, kidney stone, placenta abruption, this is not meant to be an all-inclusive list EKG interpreted by me (3pts min.). @ -None X-rays interpreted by me (1pt min.). @ -None done CT interpreted by me (1pt min.). @ -CT abdomen pelvis reveals no acute process U/S interpreted by me (1pt. min.). @ -None done What testing was considered but not performed or refused? (CT, X-rays, U/S, labs )? Why? @ -None What meds were considered but not given or refused? Why? @ -None Did you discuss the management of the patient with other professionals (professionals i.e. SHANTEL Parisi, SENIOR ART DIRECTOR, lab, RT, psych nurse, psychiatric social worker supervisor, security system analyst, teacher, staff readiness officer, casey saw operator)? Give summary @ -No Was smoking cessation discussed for >3mins.? @ -No Was critical care preformed (if so, how long)? @ -No Were there social determinants of health that impacted care today? How? (Homelessness, low income, unemployed, alcoholism, drug addiction, transportation, low edu. Level, literacy, decrease access to med. care, shelter, rehab)? @ -No Was there de-escalation of care discussed even if they declined (Discuss DNR or withdrawal of care, Hospice)? DNR status @ -No What co-morbidities impacted this encounter? (DM, HTN, Smoking, COPD, CAD, Cancer, CVA, ARF, Chemo, Hep., AIDS, mental health diagnosis, sleep apnea, morbid obesity)? @ -None Was patient admitted / discharged? Hospital course, mention meds given and route, prescriptions, significant lab abnormalities, going to OR and other pertinent info. @ - discharge. 35-year-old female presenting for right lower quadrant abdominal pain x 1 day with associated nausea and diarrhea. Vital signs are within acceptable limits. Mild right lower quadrant tenderness to palpation. Provided with IV fluids, Toradol, and Zofran for supportive care. Lab work largely unremarkable. Urinalysis largely unremarkable. CT abdomen pelvis reveals no acute process. Discussed results with patient. Discussed that early appendicitis is not completely ruled out at this time. Advised to monitor symptoms closely and return with new or worsening symptoms. Patient is ag reeable to plan. Case was discussed with my ED attending Dr. Farrell. Undiagnosed new problem with uncertain prognosis? @ -No Drug Therapy requiring intensive monitoring for toxicity (Heparin, Nitro, Insulin, Cardizem)? @ -No Were any procedures done? @ -No Diagnosis/symptom? @ -Abdominal pain Acute, or Chronic, or Acute on Chronic? @ -Acute Uncomplicated (without systemic symptoms) or Complicated (systemic symptoms)? @ -Uncomplicated Side effects of treatment? @ -No Exacerbation, Progression, or Severe Exacerbation? @ -No Poses a threat to life or bodily function? How? (Chest pain, USA, NH, pneumonia, PE, COPD, DKA, ARF, appy, cholecystitis, CVA, Diverticulitis, Homicidal, Suicidal, threat to staff... and all critical care pts) @ -Not at this time (Miguelina Liang) - Lab Data Lab Results 05/01/25 05/01/25 05/01/25 Range/Units 19:46 19:46 21:52 WBC 9.69 (4.50-10.00) 10*3/uL RBC 4.67 (4.10-5.20) 10*6/uL Hgb 13.3 (12.0-15.0) g/dL Hct 38.9 (37.2-46.3) % MCV 83.3 (80.0-97.0) fL MCH 28.5 (27.0-32.0) pg MCHC 34.2 (32.0-37.0) g/dL Plt Count 244 (140-440) 10*3/uL MPV 10.4 (9.5-12.2) fL Immature Gran % (Auto) 0.3 % Neutrophils % 62.8 % Lymphocytes % 25.0 % Monocytes % 6.6 % Eosinophils % 4.7 % Basophils % 0.6 % Immature Gran # 0.03 (0.00-0.04) 10*3/uL Neutrophils # 6.08 (1.80-7.70) 10*3/uL Lymphocytes # 2.42 (0.90-5.00) 10*3/uL Monocytes # 0.64 (0.20-1.00) 10*3/uL Eosinophils # 0.46 H (0.04-0.35) 10*3/uL Basophils # 0.06 (0.00-0.10) 10*3/uL Sodium (137-145) mmol/L Potassium (3.5-5.1) mmol/L Chloride (98-107) mmol/L Carbon Dioxide (22-30) mmol/L Anion Gap mmol/L BUN (7-17) mg/dL Creatinine (0.52-1.04) mg/dL Est GFR (CKD-EPI)AfAm (>60 ml/min/1.73 sqM) Est GFR (CKD-EPI)NonAf (>60 ml/min/1.73 sqM) Glucose (74-99) mg/dL Plasma Lactic Acid Ambrosio (0.7-2.0) mmol/L Calcium (8.4-10.2) mg/dL Total Bilirubin (0.2-1.3) mg/dL AST (14-36) U/L ALT (4-34) U/L Alkaline Phosphatase (38-126) U/L Total Protein (6.3-8.2) g/dL Albumin (3.5-5.0) g/dL Amylase (30-110) U/L Lipase (23-300) U/L Urine Color Colorless Urine Appearance Clear (Clear) Urine pH 6.0 (5.0-8.0) Ur Specific [place] 1.009 (1.001-1.035) Urine Protein Negative (Negative) Urine Glucose (UA) Negative (Negative) Urine Ketones Negative (Negative) Urine Blood Negative (Negative) Urine Nitrite Negative (Negative) Urine Bilirubin Negative (Negative) Urine Urobilinogen <2.0 (<2.0) mg/dL Ur Leukocyte Esterase Large H (Negative) Urine RBC 3 (0-5) /hpf Urine WBC 8 H (0-5) /hpf Ur Squamous Epith Cells 2 (0-4) /hpf Urine HCG, Qual Not Detected (Not Detectd) 05/01/25 05/02/25 Range/Units 21:52 00:42 WBC (4.50-10.00) 10*3/uL RBC (4.10-5.20) 10*6/uL Hgb (12.0-15.0) g/dL Hct (37.2-46.3) % MCV (80.0-97.0) fL MCH (27.0-32.0) pg MCHC (32.0-37.0) g/dL Plt Count (140-440) 10*3/uL MPV (9.5-12.2) fL Immature Gran % (Auto) % Neutrophils % % Lymphocytes % % Monocytes % % Eosinophils % % Basophils % % Immature Gran # (0.00-0.04) 10*3/uL Neutrophils # (1.80-7.70) 10*3/uL Lymphocytes # (0.90-5.00) 10*3/uL Monocytes # (0.20-1.00) 10*3/uL Eosinophils # (0.04-0.35) 10*3/uL Basophils # (0.00-0.10) 10*3/uL Sodium 137 (137-145) mmol/L Potassium 4.1 (3.5-5.1) mmol/L Chloride 102 (98-107) mmol/L Carbon Dioxide 25 (22-30) mmol/L Anion Gap 10 mmol/L BUN 13 (7-17) mg/dL Creatinine 0.62 (0.52-1.04) mg/dL Est GFR (CKD-EPI)AfAm >90 (>60 ml/min/1.73 sqM) Est GFR (CKD-EPI)NonAf >90 (>60 ml/min/1.73 sqM) Glucose 90 (74-99) mg/dL Plasma Lactic Acid Ambrosio 1.0 (0.7-2.0) mmol/L Calcium 9.8 (8.4-10.2) mg/dL Total Bilirubin 0.4 (0.2-1.3) mg/dL AST 24 (14-36) U/L ALT 24 (4-34) U/L Alkaline Phosphatase 61 (38-126) U/L Total Protein 6.9 (6.3-8.2) g/dL Albumin 4.5 (3.5-5.0) g/dL Amylase 64 (30-110) U/L Lipase 103 (23-300) U/L Urine Color Urine Appearance (Clear) Urine pH (5.0-8.0) Ur Specific [place] (1.001-1.035) Urine Protein (Negative) Urine Glucose (UA) (Negative) Urine Ketones (Negative) Urine Blood (Negative) Urine Nitrite (Negative) Urine Bilirubin (Negative) Urine Urobilinogen (<2.0) mg/dL Ur Leukocyte Esterase (Negative) Urine RBC (0-5) /hpf Urine WBC (0-5) /hpf Ur Squamous Epith Cells (0-4) /hpf Urine HCG, Qual (Not Detectd) Disposition <Nina Ralph - Last Filed: 05/01/25 19:46> Is patient prescribed a controlled substance at d/c from ED?: No Time of Disposition: 02:43 <Miguelina Liang - Last Filed: 05/02/25 04:04> Clinical Impression: Abdominal pain Disposition: HOME SELF-CARE Condition: Stable Instructions (If sedation given, give patient instructions): Abdominal Pain (ED) Additional Instructions: Please return to the Emergency Department if symptoms worsen or any other concerns. Prescriptions: Ketorolac [Toradol] 10 mg PO Q8HR #15 tab Referrals: Gorge Courtney DO [Primary Care Provider] - 1-2 days
[2025-05-01 22:00] LABS: Basophils # (A) 0.06 10*3/uL (0.00-0.10); Basophils % (A) 0.6 %; Eosinophils # (A) 0.46 10*3/uL (0.04-0.35); Eosinophils % (A) 4.7 %; HCT 38.9 % (37.2-46.3); HGB 13.3 g/dL (12.0-15.0); Lymphocytes # (A) 2.42 10*3/uL (0.90-5.00); MCH 28.5 pg (27.0-32.0); MCHC 34.2 g/dL (32.0-37.0); MCV 83.3 fL (80.0-97.0); Mean Platelet Volume 10.4 fL (9.5-12.2); Monocytes # (A) 0.64 10*3/uL (0.20-1.00); Monocytes % (A) 6.6 %; Neutrophils # (A) 6.08 10*3/uL (1.80-7.70); Neutrophils % (A) 62.8 %; Platelet Count 244 10*3/uL (140-440); RBC 4.67 10*6/uL (4.10-5.20); RDW 12.8 % (11.5-14.5); WBC 9.69 10*3/uL (4.50-10.00)
[2025-05-01 22:11] LABS: Chloride 102 mmol/L (98-107)
[2025-05-01 22:13] LABS: ALT 24 U/L (4-34); AST 24 U/L (14-36); African American GFR (CKD) >90 (>60 ml/min/1.73 sqM); Albumin 4.5 g/dL (3.5-5.0); Alkaline Phosphatase 61 U/L (38-126); Amylase 64 U/L (30-110); Anion Gap 10 mmol/L; Blood Urea Nitrogen 13 mg/dL (7-17); Calcium 9.8 mg/dL (8.4-10.2); Carbon Dioxide 25 mmol/L (22-30); Glucose 90 mg/dL (74-99); Lipase 103 U/L (23-300); Non-African American GFR(CKD) >90 (>60 ml/min/1.73 sqM); Potassium 4.1 mmol/L (3.5-5.1); Sodium 137 mmol/L (137-145); Total Bilirubin 0.4 mg/dL (0.2-1.3); Total Protein 6.9 g/dL (6.3-8.2)
[2025-05-01 22:20] LABS: Appearance,Urine Clear (Clear); Bilirubin,Urine Negative (Negative); Blood,Urine Negative (Negative); Color,Urine Colorless; Glucose,Urine (UA) Negative (Negative); Ketones,Urine Negative (Negative); Leukocyte Esterase,Urine Large (Negative); Nitrite,Urine Negative (Negative); Protein,Urine Negative (Negative); RBC,Urine 3 /hpf (0-5); Specific Gravity,Urine 1.009 (1.001-1.035); Squamous Epithelial Cell,Urine 2 /hpf (0-4); Urobilinogen,Urine <2.0 mg/dL (<2.0); WBC,Urine 8 /hpf (0-5)
[2025-05-02] MEDS: ONDANSETRON 4 MG/2 ML VIAL IVP STA (01:21)
[2025-05-02] MEDS: SODIUM CHLORIDE 0.9% 1,000 ML IV STA (01:22)
[2025-05-02] MEDS: KETOROLAC 15 MG/ML 1 ML VIAL IVP STA ×2 (01:30→02:53)
--- NOTE | 2025-05-02 02:11 | CT ---
EXAM: CT Abdomen and Pelvis With Intravenous Contrast CLINICAL HISTORY: ITS.REASON CT Reason: RLQ abdominal pain, appendicitis suspected TECHNIQUE: Axial computed tomography images of the abdomen and pelvis with intravenous contrast. CTDI is 28.8 mGy and DLP is 1425.6 mGy-cm. This CT exam was performed using one or more of the following dose reduction techniques: automated exposure control, adjustment of the mA and/or kV according to patient size, and/or use of iterative reconstruction technique. COMPARISON: No relevant prior studies available. FINDINGS: Lung bases: Unremarkable. No mass. No consolidation. ABDOMEN: Liver: Unremarkable. No mass. Gallbladder and bile ducts: Unremarkable. No calcified stones. No ductal dilation. Pancreas: Unremarkable. No mass. No ductal dilation. Spleen: Unremarkable. No splenomegaly. Adrenals: Unremarkable. No mass. Kidneys and ureters: Unremarkable. No solid mass. No hydronephrosis. Stomach and bowel: Unremarkable. No obstruction. No mucosal thickening. PELVIS: Appendix: No findings to suggest acute appendicitis. Bladder: Unremarkable. No mass. Reproductive: Unremarkable as visualized. ABDOMEN and PELVIS: Intraperitoneal space: Unremarkable. No free air. No significant fluid collection. Bones/joints: No acute fracture. No dislocation. Soft tissues: Unremarkable. Vasculature: Unremarkable. No abdominal aortic aneurysm. Lymph nodes: Unremarkable. No enlarged lymph nodes. IMPRESSION: Normal appendix.
[2025-05-02] MEDS: MORPHINE SULFATE 4 MG/ML SYRINGE IVP STA (03:01)
[2025-05-02 03:12] VITALS: BP 127/82; PULSE 84; RESP 18; TEMP 98.4
== END 2025-05-02 03:12 | disposition home or self-care (01) ==
LOC: EC 19:22
DX: R10.31 Right lower quadrant pain (principal); Z88.0 Allergy status to penicillin
CPT/HCPCS: 36415; 74177; 80053; 81001; 81025; 82150; 83605; 83690; 85025; 96361; 96374; 96375; 96376; 99284